=== PATIENT | male | born 1965 | race Caucasian/White ===

== ENCOUNTER 2016-09-17 22:58 | Inpatient (IN) | payer MEDICAID ==
[~2016-09-17] VITALS: Ht 182.9 cm; Wt 101.7 kg
[~2016-09-17 22:58] MED LIST: ATOR80TA PO; BUSP5TAB51 PO; CARV6.2551 PO; DIGO0.2570 PO; ENAL5TAB92 PO; ESCI10TA PO; ESOM40CA39 PO; FURO40TA4 PO; GEMF600T3 PO; LEVO50TA7 PO; POTA10TA34 PO; SPIR25TA88 PO; WARF1TAB PO
[2016-09-17 23:32] LABS: Basophils # (auto) 0.1 uL; Basophils % (auto) 0.6 % (0.0-2.0); Eosinophils # (auto) 0.4 uL; Eosinophils % (auto) 3.7 % (0.0-7.0); Hematocrit 37.2 % (41.0-53.0); Hemoglobin 11.9 g/dL (13.5-17.5); Lymphocytes # (auto) 1.3 uL; Lymphocytes % (auto) 12.5 % (10.0-50.0); Mean Corpuscular Hemoglobin 28.8 pg (28.0-32.0); Mean Corpuscular Hgb Conc. 31.9 g/dL (32.0-36.0); Mean Corpuscular Volume 90.1 fL (80.0-100.0); Mean Platelet Volume 8.7 fL (7.4-10.4); Monocytes # (auto) 0.6 uL; Monocytes % (auto) 5.2 % (0.0-12.0); Neutrophils # (auto) 8.2 uL; Platelet Count (auto) 346 10^3/uL (140-450); Red Cell Distribution Width 13.8 % (11.6-16.0); White Blood Cell 10.6 10^3/uL (4.4-10.8)
[2016-09-17 23:42] LABS: Albumin 2.8 g/dL (3.4-5.0); BUN/Creatinine Ratio 21.5; Calcium 7.9 mg/dL (8.5-10.1); Magnesium 2.2 mg/dL (1.6-2.6)
[2016-09-17 23:45] LABS: Bilirubin, Total 0.6 mg/dL (0.2-1.0); Total Protein 7.3 g/dL (6.4-8.2)
[2016-09-18 00:40] LABS: B-Type Natriuretic Peptide 677.41 pg/mL (0-100)
[2016-09-18] MEDS ORDERED: FUROSEMIDE 20 MG/2 ML VIAL IV ONE ×2 (04:45)
[2016-09-18] MEDS ORDERED: HYDROcodone-ACET 5/325MG TAB PO PRN (06:45)
[2016-09-18] MEDS ORDERED: NITROGLYCERIN 0.4 MG SL TAB SL PRN (06:45)
[2016-09-18] MEDS ORDERED: ONDANSETRON HCL 4 MG/2 ML VIAL IV PRN (06:45)
[2016-09-18] MEDS ORDERED: ALBUTEROL SULF 2.5 MG/0.5ML(0.5%) NEB SOLN NEB PRN (06:45)
[2016-09-18] MEDS ORDERED: MORPHINE SULF INJ 2 MG/ML SYRINGE 1ML IV PRN (06:45)
[2016-09-18] MEDS ORDERED: ACETAMINOPHEN 325 MG TAB PO PRN (06:45)
[2016-09-18] MEDS ORDERED: TEMAZEPAM 15 MG CAP PO PRN (06:45)
[2016-09-18 07:20] LABS: INR 1.13 (0.9-1.15); Partial Thromboplastin Time 29.7 sec (22.64-33.71); Prothrombin Time 11.6 sec (9.37-12.3)
[2016-09-18 09:00] VITALS: BP 133/86
[2016-09-18] MEDS: LEVOTHYROXINE SODIUM 50 MCG TAB PO SCH (09:00)
[2016-09-18 09:10] VITALS: BP 133/86
[2016-09-18] MEDS: FAMOTIDINE 20 MG TAB PO SCH ×2 (10:00→21:41)
[2016-09-18 10:27] VITALS: BP 138/82
[2016-09-18] MEDS: DIGOXIN 0.25 MG TAB PO SCH (10:53)
[2016-09-18] MEDS: ENALAPRIL MALEATE 2.5 MG TAB PO SCH ×2 (10:54→21:43)
[2016-09-18] MEDS: SPIRONOLACTONE 25 MG TAB PO SCH (10:54)
[2016-09-18] MEDS: busPIRone HCL 10 MG TAB PO SCH ×2 (10:54→21:43)
[2016-09-18] MEDS: FUROSEMIDE 40 MG TAB PO SCH (10:54)
[2016-09-18] MEDS: CARVEDILOL 3.125 MG TAB PO SCH ×2 (10:55→21:42)
[2016-09-18] MEDS: POTASSIUM CHL 10 Meq TABLET PO SCH (10:55)
[2016-09-18 13:00] VITALS: BP 125/91
[2016-09-18 17:11] VITALS: BP 112/74
[2016-09-18] MEDS: APIXABAN 5 MG TAB PO SCH (21:41)
[2016-09-18 22:00] VITALS: BP 113/73
[2016-09-18] MEDS ORDERED: PATIENTS OWN MEDICATION PO SCH ×2 (22:00)
[2016-09-18] MEDS ORDERED: ATORVASTATIN 20 MG TAB PO SCH (22:00)
[2016-09-19 05:00] VITALS: BP 104/57
[2016-09-19 06:37] LABS: Basophils # (auto) 0 uL; Basophils % (auto) 0.2 % (0.0-2.0); Eosinophils # (auto) 0.4 uL; Eosinophils % (auto) 5.6 % (0.0-7.0); Hemoglobin 12.7 g/dL (13.5-17.5); Lymphocytes # (auto) 1.5 uL; Lymphocytes % (auto) 18.8 % (10.0-50.0); Mean Corpuscular Hemoglobin 29.8 pg (28.0-32.0); Mean Corpuscular Hgb Conc. 32.5 g/dL (32.0-36.0); Mean Corpuscular Volume 91.7 fL (80.0-100.0); Mean Platelet Volume 9.1 fL (7.4-10.4); Monocytes # (auto) 0.7 uL; Neutrophils # (auto) 5.3 uL; Neutrophils % (auto) 66.4 % (37.0-80.0); Platelet Count (auto) 373 10^3/uL (140-450); Red Cell Distribution Width 14.1 % (11.6-16.0); White Blood Cell 7.9 10^3/uL (4.4-10.8)
[2016-09-19 06:41] LABS: Albumin 2.9 g/dL (3.4-5.0); BUN/Creatinine Ratio 22.7; Bilirubin, Total 0.6 mg/dL (0.2-1.0); Calcium 9.1 mg/dL (8.5-10.1); Potassium 3.9 mmol/L (3.5-5.1); Total Protein 7.7 g/dL (6.4-8.2)
[2016-09-19 07:43] LABS: B-Type Natriuretic Peptide 461.8 pg/mL (0-100)
[2016-09-19] MEDS: LEVOTHYROXINE SODIUM 50 MCG TAB PO SCH (08:10)
[2016-09-19 09:00] VITALS: BP 93/63
[2016-09-19] MEDS: FAMOTIDINE 20 MG TAB PO SCH (09:36)
[2016-09-19] MEDS: APIXABAN 5 MG TAB PO SCH (09:36)
[2016-09-19] MEDS: POTASSIUM CHL 10 Meq TABLET PO SCH (09:37)
[2016-09-19] MEDS: busPIRone HCL 10 MG TAB PO SCH (09:37)
[2016-09-19] MEDS: DIGOXIN 0.25 MG TAB PO SCH (09:37)
[2016-09-19] MEDS: CARVEDILOL 3.125 MG TAB PO SCH (09:38)
[2016-09-19] MEDS: SPIRONOLACTONE 25 MG TAB PO SCH (09:38)
[2016-09-19] MEDS: ENALAPRIL MALEATE 2.5 MG TAB PO SCH (09:38)
[2016-09-19] MEDS: FUROSEMIDE 40 MG TAB PO SCH (09:38)
[2016-09-19 12:57] VITALS: BP 93/63
[2016-09-19 13:29] VITALS: BP 101/60
== END 2016-09-19 14:20 | disposition home or self-care (01) | DRG 194 ==
LOC: EDBD 22:58 → ER 23:02 → TELE 23:03 → TELE-E-ADS 09-18 08:11 → TELE-EAST 09-18 10:24
PROVIDERS: ADMIT Internal Medicine; ATTEND Internal Medicine
DX: I11.0 Hypertensive heart disease with heart failure (principal); E43 Unspecified severe protein-calorie malnutrition; F03.90 Unspecified dementia, unspecified severity, without behavioral disturbance, psychotic disturbance, mood disturbance, and anxiety; I50.43 Acute on chronic combined systolic (congestive) and diastolic (congestive) heart failure; I42.9 Cardiomyopathy, unspecified; J44.9 Chronic obstructive pulmonary disease, unspecified; F17.210 Nicotine dependence, cigarettes, uncomplicated; F15.10 Other stimulant abuse, uncomplicated; I25.10 Atherosclerotic heart disease of native coronary artery without angina pectoris; Z86.73 Personal history of transient ischemic attack (TIA), and cerebral infarction without residual deficits; Z91.19 Patient's noncompliance with other medical treatment and regimen; Z68.30 Body mass index [BMI] 30.0-30.9, adult; I25.2 Old myocardial infarction; Z88.0 Allergy status to penicillin; Z79.899 Other long term (current) drug therapy
CPT/HCPCS: 36415; 71010; 80053; 80162; 83735; 83880; 84484; 85025; 85049; 85610; 85730; 93005; 93306; 96374

== ENCOUNTER 2016-12-18 16:51 | Inpatient (IN) | payer MEDICAID ==
[~2016-12-18] VITALS: Ht 177.8 cm; Wt 98.0 kg
[2016-12-18] MEDS ORDERED: ACETAMINOPHEN 325 MG TAB PO ONE (17:30)
[2016-12-18 17:36] LABS: Basophils # (auto) 0 uL; Eosinophils # (auto) 0 uL; Eosinophils % (auto) 0.3 % (0.0-7.0); Hematocrit 41.5 % (41.0-53.0); Hemoglobin 13.6 g/dL (13.5-17.5); Lymphocytes # (auto) 1.3 uL; Lymphocytes % (auto) 6.8 % (10.0-50.0); Mean Corpuscular Hemoglobin 29.7 pg (28.0-32.0); Mean Corpuscular Hgb Conc. 32.7 g/dL (32.0-36.0); Mean Corpuscular Volume 90.8 fL (80.0-100.0); Mean Platelet Volume 8.3 fL (7.4-10.4); Monocytes # (auto) 0.8 uL; Monocytes % (auto) 4.1 % (0.0-12.0); Neutrophils # (auto) 17.5 uL; Neutrophils % (auto) 88.8 % (37.0-80.0); Platelet Count (auto) 434 10^3/uL (140-450); Red Cell Distribution Width 15.3 % (11.6-16.0); SUSPECT VIEW TRANSMISSION; White Blood Cell 19.7 10^3/uL (4.4-10.8)
[2016-12-18 17:59] LABS: Albumin 3.3 g/dL (3.4-5.0); BUN/Creatinine Ratio 21.7; Bilirubin, Total 0.9 mg/dL (0.2-1.0); Calcium 8.7 mg/dL (8.5-10.1); Potassium 3.7 mmol/L (3.5-5.1); Total Protein 7.8 g/dL (6.4-8.2)
[2016-12-18 18:47] LABS: B-Type Natriuretic Peptide 938.31 pg/mL (0-100)
[2016-12-18] MEDS ORDERED: cefTRIAXone 1GM/50ML D5W 50 ML IV ONE (19:30)
[2016-12-18] MEDS ORDERED: FUROSEMIDE 40 MG/4 ML VIAL IV ONE (19:45)
[2016-12-18] MEDS ORDERED: ASPirin-EC 81 mg tab PO ONE (19:45)
[2016-12-18 20:25] LABS: Urine Bilirubin Negative (Negative); Urine Blood Negative /uL (Negative); Urine Color Yellow (Yellow); Urine Glucose Normal (Normal); Urine Ketone Negative (Negative); Urine Nitrite Negative (Negative); Urine RBC 1 /hpf (0 - 3); Urine Sperm PRESENT /hpf (None Seen); Urine Squamous Epithelial Cell FEW /hpf (<5)
[2016-12-18] MEDS ORDERED: HYDROcodone-ACET 5/325MG TAB PO PRN (21:30)
[2016-12-18] MEDS ORDERED: ACETAMINOPHEN 325 MG TAB PO PRN (21:30)
[2016-12-18] MEDS ORDERED: ONDANSETRON HCL 4 MG/2 ML VIAL IV PRN (21:30)
[2016-12-18] MEDS ORDERED: TEMAZEPAM 15 MG CAP PO PRN (21:30)
[2016-12-18] MEDS ORDERED: MORPHINE SULF INJ 2 MG/ML SYRINGE 1ML IV PRN (21:30)
[2016-12-18] MEDS ORDERED: NITROGLYCERIN 0.4 MG SL TAB SL PRN (21:30)
[2016-12-18 22:50] VITALS: BP 112/71
[2016-12-18] MEDS: CARVEDILOL 3.125 MG TAB PO SCH (23:11)
[2016-12-18] MEDS: busPIRone HCL 10 MG TAB PO SCH (23:11)
[2016-12-18] MEDS: FAMOTIDINE 20 MG TAB PO SCH (23:12)
[2016-12-18] MEDS: ATORVASTATIN 20 MG TAB PO SCH (23:12)
[2016-12-18] MEDS: ENALAPRIL MALEATE 2.5 MG TAB PO SCH (23:13)
[2016-12-18 23:25] LABS: INR 1.24 (0.9-1.15); Partial Thromboplastin Time 28.5 sec (22.64-33.71); Prothrombin Time 13.4 sec (9.37-12.3)
[2016-12-19] VITALS (7 sets, daily range): BP systolic 94–108; BP diastolic 53–70
[2016-12-19] MEDS: LEVOTHYROXINE SODIUM 50 MCG TAB PO SCH (06:27)
[2016-12-19 07:13] LABS: Basophils # (auto) 0 uL; Eosinophils # (auto) 0.1 uL; Eosinophils % (auto) 0.3 % (0.0-7.0); Hematocrit 39.3 % (41.0-53.0); Hemoglobin 12.9 g/dL (13.5-17.5); Lymphocytes # (auto) 1.7 uL; Lymphocytes % (auto) 8.6 % (10.0-50.0); Mean Corpuscular Hemoglobin 29.8 pg (28.0-32.0); Mean Corpuscular Hgb Conc. 32.7 g/dL (32.0-36.0); Mean Corpuscular Volume 91.3 fL (80.0-100.0); Mean Platelet Volume 8.7 fL (7.4-10.4); Monocytes # (auto) 1.1 uL; Monocytes % (auto) 5.7 % (0.0-12.0); Neutrophils # (auto) 16.7 uL; Neutrophils % (auto) 85.4 % (37.0-80.0); Platelet Count (auto) 358 10^3/uL (140-450); Red Cell Distribution Width 15.4 % (11.6-16.0); White Blood Cell 19.6 10^3/uL (4.4-10.8)
[2016-12-19] MEDS ORDERED: LEVOFLOXACIN 750MG 150 ML IV SCH (10:00)
[2016-12-19] MEDS: SPIRONOLACTONE 25 MG TAB PO SCH (10:04)
[2016-12-19] MEDS: busPIRone HCL 10 MG TAB PO SCH ×2 (10:04→21:29)
[2016-12-19] MEDS: CARVEDILOL 3.125 MG TAB PO SCH ×2 (10:05→21:29)
[2016-12-19] MEDS: FUROSEMIDE 40 MG TAB PO SCH (10:05)
[2016-12-19] MEDS: POTASSIUM CHL 10 Meq TABLET PO SCH (10:05)
[2016-12-19] MEDS: FAMOTIDINE 20 MG TAB PO SCH ×2 (10:05→21:29)
[2016-12-19] MEDS: ENALAPRIL MALEATE 2.5 MG TAB PO SCH ×2 (10:05→21:26)
[2016-12-19 10:55] LABS: INR 1.24 (0.9-1.15); Prothrombin Time 13.4 sec (9.37-12.3)
[2016-12-19 14:32] LABS: Albumin 2.9 g/dL (3.4-5.0); BUN/Creatinine Ratio 19.5; Bilirubin, Total 1.1 mg/dL (0.2-1.0); Calcium 8.7 mg/dL (8.5-10.1); Potassium 3.4 mmol/L (3.5-5.1); Total Protein 7.3 g/dL (6.4-8.2)
[2016-12-19] MEDS ORDERED: WARFARIN SODIUM 2 MG TAB PO ONE (17:00)
[2016-12-19] MEDS ORDERED: VANCOMYCIN PER PHARMACY 0 MG IV SCH (18:15)
[2016-12-19] MEDS: VANCOMYCIN 1GM/250ML D5W 250 ML IV SCH (21:16)
[2016-12-19] MEDS: ATORVASTATIN 20 MG TAB PO SCH (21:28)
[2016-12-20] MEDS: ALBUTEROL SULF 2.5 MG/0.5ML(0.5%) NEB SOLN NEB SCH ×4 (00:23→19:26)
[2016-12-20 05:00] VITALS: BP 104/67
[2016-12-20 06:09] LABS: Calcium 9.2 mg/dL (8.5-10.1); Potassium 3.6 mmol/L (3.5-5.1)
[2016-12-20 06:14] LABS: INR 1.14 (0.9-1.15); Partial Thromboplastin Time 29.7 sec (22.64-33.71); Prothrombin Time 12.3 sec (9.37-12.3)
[2016-12-20 06:16] LABS: Albumin 2.7 g/dL (3.4-5.0); BUN/Creatinine Ratio 24.2
[2016-12-20 06:18] LABS: Bilirubin, Total 0.6 mg/dL (0.2-1.0); Total Protein 7.1 g/dL (6.4-8.2)
[2016-12-20] MEDS: VANCOMYCIN 1GM/250ML D5W 250 ML IV SCH ×3 (06:24→20:46)
[2016-12-20] MEDS: LEVOTHYROXINE SODIUM 50 MCG TAB PO SCH (06:24)
[2016-12-20 06:33] LABS: Basophils # (auto) 0 uL; Basophils % (auto) 0.4 % (0.0-2.0); Eosinophils # (auto) 0.3 uL; Eosinophils % (auto) 3.6 % (0.0-7.0); Hematocrit 38.1 % (41.0-53.0); Hemoglobin 12.4 g/dL (13.5-17.5); Lymphocytes # (auto) 1.6 uL; Lymphocytes % (auto) 18.9 % (10.0-50.0); Mean Corpuscular Hemoglobin 29.9 pg (28.0-32.0); Mean Corpuscular Hgb Conc. 32.6 g/dL (32.0-36.0); Mean Corpuscular Volume 91.6 fL (80.0-100.0); Mean Platelet Volume 8.4 fL (7.4-10.4); Monocytes # (auto) 0.8 uL; Neutrophils # (auto) 5.9 uL; Neutrophils % (auto) 68.1 % (37.0-80.0); Platelet Count (auto) 366 10^3/uL (140-450); Red Cell Distribution Width 15.7 % (11.6-16.0); White Blood Cell 8.6 10^3/uL (4.4-10.8)
[2016-12-20 08:36] VITALS: BP 110/74
[2016-12-20] MEDS: FUROSEMIDE 40 MG TAB PO SCH (10:03)
[2016-12-20] MEDS: FAMOTIDINE 20 MG TAB PO SCH ×2 (10:03→22:11)
[2016-12-20] MEDS: SPIRONOLACTONE 25 MG TAB PO SCH (10:03)
[2016-12-20] MEDS: POTASSIUM CHL 10 Meq TABLET PO SCH (10:04)
[2016-12-20] MEDS: busPIRone HCL 10 MG TAB PO SCH ×2 (10:04→22:09)
[2016-12-20] MEDS: CARVEDILOL 3.125 MG TAB PO SCH ×2 (10:05→22:10)
[2016-12-20] MEDS: ENALAPRIL MALEATE 2.5 MG TAB PO SCH ×2 (10:05→22:11)
[2016-12-20 12:30] VITALS: BP 107/77
[2016-12-20 16:40] VITALS: BP 109/75
[2016-12-20] MEDS ORDERED: WARFARIN SODIUM 2 MG TAB PO ONE (17:00)
[2016-12-20 22:00] VITALS: BP 114/76
[2016-12-20] MEDS: ATORVASTATIN 20 MG TAB PO SCH (22:10)
[2016-12-21] MEDS: ALBUTEROL SULF 2.5 MG/0.5ML(0.5%) NEB SOLN NEB SCH ×3 (00:56→11:26)
[2016-12-21] MEDS: VANCOMYCIN 1GM/250ML D5W 250 ML IV SCH (04:48)
[2016-12-21 05:00] VITALS: BP 107/62
[2016-12-21 05:40] LABS: INR 1.06 (0.9-1.15); Partial Thromboplastin Time 28.3 sec (22.64-33.71); Prothrombin Time 11.5 sec (9.37-12.3)
[2016-12-21] MEDS: LEVOTHYROXINE SODIUM 50 MCG TAB PO SCH (06:57)
[2016-12-21 08:24] VITALS: BP 129/89
[2016-12-21] MEDS: CARVEDILOL 3.125 MG TAB PO SCH (10:23)
[2016-12-21] MEDS: ENALAPRIL MALEATE 2.5 MG TAB PO SCH (10:23)
[2016-12-21] MEDS: POTASSIUM CHL 10 Meq TABLET PO SCH (10:24)
[2016-12-21] MEDS: FAMOTIDINE 20 MG TAB PO SCH (10:24)
[2016-12-21] MEDS: busPIRone HCL 10 MG TAB PO SCH (10:24)
[2016-12-21] MEDS: FUROSEMIDE 40 MG TAB PO SCH (10:24)
[2016-12-21] MEDS: SPIRONOLACTONE 25 MG TAB PO SCH (10:24)
[2016-12-21 11:29] VITALS: BP 129/89
[2016-12-21] MEDS ORDERED: WARFARIN SODIUM 5 MG TAB PO ONE (17:00)
[2016-12-21] MEDS ORDERED: VANCOMYCIN 1GM/250ML D5W 250 ML IV SCH (17:00)
== END 2016-12-21 11:50 | disposition home or self-care (01) | DRG 194 ==
LOC: EDBD 16:51 → ER 16:55 → TELE 16:56 → TELE-EAST 22:35
PROVIDERS: ADMIT Internal Medicine; ATTEND Internal Medicine
DX: I11.0 Hypertensive heart disease with heart failure (principal); J18.9 Pneumonia, unspecified organism; E44.0 Moderate protein-calorie malnutrition; I42.9 Cardiomyopathy, unspecified; M32.9 Systemic lupus erythematosus, unspecified; I50.43 Acute on chronic combined systolic (congestive) and diastolic (congestive) heart failure; J44.0 Chronic obstructive pulmonary disease with (acute) lower respiratory infection; J44.1 Chronic obstructive pulmonary disease with (acute) exacerbation; F17.210 Nicotine dependence, cigarettes, uncomplicated; I25.10 Atherosclerotic heart disease of native coronary artery without angina pectoris; F15.90 Other stimulant use, unspecified, uncomplicated; Z86.73 Personal history of transient ischemic attack (TIA), and cerebral infarction without residual deficits; Z91.19 Patient's noncompliance with other medical treatment and regimen; Z95.810 Presence of automatic (implantable) cardiac defibrillator; Z88.0 Allergy status to penicillin; Z68.31 Body mass index [BMI] 31.0-31.9, adult; Z79.899 Other long term (current) drug therapy; I25.2 Old myocardial infarction
CPT/HCPCS: 36415; 71010; 80053; 80202; 80307; 80320; 81001; 82962; 83605; 83880; 84484; 85025; 85610; 85730; 87040; 87077; 87186; 93005; 94640; 94761; J0696; J1956

== ENCOUNTER 2017-01-03 01:52 | Inpatient (IN) | payer MEDICAID ==
[~2017-01-03] VITALS: Ht 177.8 cm; Wt 96.3 kg
[2017-01-03] MEDS ORDERED: ENALAPRILAT 1.25 MG/ML-1ML VIAL IV ONE (02:45)
[2017-01-03 03:12] LABS: Basophils # (auto) 0 uL; Basophils % (auto) 0.4 % (0.0-2.0); Eosinophils # (auto) 0.1 uL; Eosinophils % (auto) 1.4 % (0.0-7.0); Hemoglobin 12.7 g/dL (13.5-17.5); Lymphocytes # (auto) 1.7 uL; Lymphocytes % (auto) 19.6 % (10.0-50.0); Mean Corpuscular Hemoglobin 29.5 pg (28.0-32.0); Mean Corpuscular Hgb Conc. 32.6 g/dL (32.0-36.0); Mean Corpuscular Volume 90.6 fL (80.0-100.0); Mean Platelet Volume 8.6 fL (7.4-10.4); Monocytes # (auto) 0.6 uL; Monocytes % (auto) 6.3 % (0.0-12.0); Neutrophils # (auto) 6.4 uL; Neutrophils % (auto) 72.3 % (37.0-80.0); Platelet Count (auto) 397 10^3/uL (140-450); Red Cell Distribution Width 15.9 % (11.6-16.0); White Blood Cell 8.9 10^3/uL (4.4-10.8)
[2017-01-03 03:27] LABS: INR 1.12 (0.9-1.15); Partial Thromboplastin Time 27.1 sec (22.64-33.71); Prothrombin Time 12.1 sec (9.37-12.3)
[2017-01-03 03:28] LABS: Albumin 3.4 g/dL (3.4-5.0); BUN/Creatinine Ratio 16.5; Calcium 8.2 mg/dL (8.5-10.1); Potassium 3.7 mmol/L (3.5-5.1)
[2017-01-03 03:33] LABS: Bilirubin, Total 0.8 mg/dL (0.2-1.0); Total Protein 6.8 g/dL (6.4-8.2)
[2017-01-03 03:44] LABS: B-Type Natriuretic Peptide 2508.76 pg/mL (0-100)
[2017-01-03 03:55] LABS: Urine RBC None Seen /hpf (0 - 3)
[2017-01-03 04:07] LABS: Urine Bilirubin Negative (Negative); Urine Blood Negative /uL (Negative); Urine Color Yellow (Yellow); Urine Glucose Normal (Normal); Urine Hyaline Cast FEW /lpf (0 - 2); Urine Ketone Negative (Negative); Urine Nitrite Negative (Negative); Urine Squamous Epithelial Cell FEW /hpf (<5); Urine Urobilinogen Normal (Negative); Urine pH 5.5 (5.0-8.0)
[2017-01-03] MEDS ORDERED: ONDANSETRON HCL 4 MG/2 ML VIAL IV PRN (07:00)
[2017-01-03] MEDS ORDERED: MORPHINE SULF INJ 2 MG/ML SYRINGE 1ML IV PRN ×2 (07:00)
[2017-01-03] MEDS ORDERED: ACETAMINOPHEN 325 MG TAB PO PRN (07:00)
[2017-01-03] MEDS ORDERED: NITROGLYCERIN 0.4 MG SL TAB SL PRN (07:00)
[2017-01-03] MEDS ORDERED: TEMAZEPAM 15 MG CAP PO PRN (07:00)
[2017-01-03] MEDS: FUROSEMIDE 40 MG/4 ML VIAL IV SCH ×2 (08:18→18:54)
[2017-01-03] MEDS ORDERED: ENALAPRIL MALEATE 2.5 MG TAB PO ONE (10:00)
[2017-01-03] MEDS ORDERED: ENOXAPARIN SOD 40 MG/0.4 ML SYRINGE SC SCH (10:00)
[2017-01-03] MEDS ORDERED: ZINC SULFATE 220 MG CAP PO SCH (10:00)
[2017-01-03] MEDS ORDERED: FUROSEMIDE 40 MG/4 ML VIAL IV ONE (10:00)
[2017-01-03] MEDS ORDERED: ASCORBIC ACID 500 MG TAB PO SCH (10:00)
[2017-01-03] MEDS ORDERED: ENOXAPARIN SOD 30 MG/0.3 ML SYRINGE SC SCH (10:00)
[2017-01-03] MEDS: MULTIPLE VITAMIN TAB PO SCH (10:26)
[2017-01-03] MEDS: ENALAPRIL MALEATE 2.5 MG TAB PO SCH (10:26)
[2017-01-03] MEDS: FAMOTIDINE 20 MG TAB PO SCH ×2 (10:26→21:47)
[2017-01-03] MEDS: SODIUM CHLOR 0.9% PF (SALINE LOCK) 10ML VIAL IV SCH ×2 (14:00→21:50)
[2017-01-03] MEDS ORDERED: APIX5TAB OR (15:25)
[2017-01-03] MEDS ORDERED: OMEP20CA5 OR (15:25)
[2017-01-03 17:00] VITALS: BP 132/80
[2017-01-03] MEDS: SPIRONOLACTONE 25 MG TAB PO SCH (20:11)
[2017-01-03] MEDS: ASPirin 81 mg TAB PO SCH (20:12)
[2017-01-03] MEDS: DIGOXIN 0.25 MG TAB PO SCH (20:12)
[2017-01-03] MEDS: POTASSIUM CHL 20 Meq TABLET PO SCH (20:12)
[2017-01-03] MEDS: CARVEDILOL 3.125 MG TAB PO SCH (21:47)
[2017-01-03 22:00] VITALS: BP 115/71
[2017-01-04 05:07] VITALS: BP 118/78
[2017-01-04 05:44] LABS: BUN/Creatinine Ratio 20.4; Bilirubin, Total 0.9 mg/dL (0.2-1.0); Calcium 8.5 mg/dL (8.5-10.1); Potassium 3.3 mmol/L (3.5-5.1); Total Protein 6.4 g/dL (6.4-8.2)
[2017-01-04] MEDS: SODIUM CHLOR 0.9% PF (SALINE LOCK) 10ML VIAL IV SCH ×3 (06:18→21:50)
[2017-01-04] MEDS: FUROSEMIDE 40 MG/4 ML VIAL IV SCH ×2 (06:19→18:27)
[2017-01-04] MEDS ORDERED: LEVOTHYROXINE SODIUM 50 MCG TAB PO SCH (07:00)
[2017-01-04 08:56] VITALS: BP 108/70
[2017-01-04] MEDS: CARVEDILOL 3.125 MG TAB PO SCH ×2 (10:00→21:50)
[2017-01-04] MEDS: SPIRONOLACTONE 25 MG TAB PO SCH (10:04)
[2017-01-04] MEDS: ASPirin 81 mg TAB PO SCH (10:04)
[2017-01-04] MEDS: POTASSIUM CHL 20 Meq TABLET PO SCH (10:06)
[2017-01-04] MEDS: DIGOXIN 0.25 MG TAB PO SCH (10:07)
[2017-01-04] MEDS: MULTIPLE VITAMIN TAB PO SCH (10:08)
[2017-01-04] MEDS: ENALAPRIL MALEATE 2.5 MG TAB PO SCH (10:08)
[2017-01-04] MEDS: FAMOTIDINE 20 MG TAB PO SCH ×2 (10:08→22:00)
[2017-01-04] MEDS ORDERED: POTASSIUM CHLORIDE 40 MEQ, LIDOCAINE 1% (LOCAL ANESTH.) 4 ML in SODIUM CHL 0.9% 250 ML IV ONE (10:30)
[2017-01-04 12:50] VITALS: BP 120/80
[2017-01-04 17:00] VITALS: BP 116/74
[2017-01-04 21:46] VITALS: BP 98/60
[2017-01-05 04:34] VITALS: BP 114/77
[2017-01-05] MEDS: SODIUM CHLOR 0.9% PF (SALINE LOCK) 10ML VIAL IV SCH ×2 (06:28→14:43)
[2017-01-05] MEDS: FUROSEMIDE 40 MG/4 ML VIAL IV SCH (06:28)
[2017-01-05] MEDS ORDERED: LEVOTHYROXINE SODIUM 100 MCG TAB PO SCH (07:00)
[2017-01-05 07:11] LABS: Albumin 3.3 g/dL (3.4-5.0); BUN/Creatinine Ratio 19.1; Bilirubin, Total 0.8 mg/dL (0.2-1.0); Potassium 3.7 mmol/L (3.5-5.1); Total Protein 6.9 g/dL (6.4-8.2)
[2017-01-05 08:00] VITALS: BP 123/72
[2017-01-05 08:32] LABS: B-Type Natriuretic Peptide 609.8 pg/mL (0-100); Temperature: 23.1 C (20.0-25.0)
[2017-01-05 09:00] VITALS: BP 123/72
[2017-01-05] MEDS: ENALAPRIL MALEATE 2.5 MG TAB PO SCH (09:39)
[2017-01-05] MEDS: SPIRONOLACTONE 25 MG TAB PO SCH (09:39)
[2017-01-05] MEDS: POTASSIUM CHL 20 Meq TABLET PO SCH (09:39)
[2017-01-05] MEDS: CARVEDILOL 3.125 MG TAB PO SCH (09:39)
[2017-01-05] MEDS: FAMOTIDINE 20 MG TAB PO SCH (09:39)
[2017-01-05] MEDS: ASPirin 81 mg TAB PO SCH (09:39)
[2017-01-05] MEDS: DIGOXIN 0.25 MG TAB PO SCH (09:40)
[2017-01-05] MEDS: MULTIPLE VITAMIN TAB PO SCH (09:40)
[2017-01-05 12:58] VITALS: BP 123/72
[2017-01-05 13:00] VITALS: BP 104/70
== END 2017-01-05 15:00 | disposition home or self-care (01) | DRG 194 ==
LOC: ER 01:52 → TELE 01:53 → TELE-E-ADS 13:52 → TELE-WESTW 16:32
PROVIDERS: ADMIT Emergency Medicine; ATTEND Internal Medicine
DX: I11.0 Hypertensive heart disease with heart failure (principal); I42.9 Cardiomyopathy, unspecified; E44.1 Mild protein-calorie malnutrition; I50.43 Acute on chronic combined systolic (congestive) and diastolic (congestive) heart failure; J44.9 Chronic obstructive pulmonary disease, unspecified; F15.10 Other stimulant abuse, uncomplicated; I25.10 Atherosclerotic heart disease of native coronary artery without angina pectoris; F17.210 Nicotine dependence, cigarettes, uncomplicated; E03.9 Hypothyroidism, unspecified; E78.5 Hyperlipidemia, unspecified; Z91.19 Patient's noncompliance with other medical treatment and regimen; Z88.0 Allergy status to penicillin; Z86.73 Personal history of transient ischemic attack (TIA), and cerebral infarction without residual deficits; I25.2 Old myocardial infarction; Z68.30 Body mass index [BMI] 30.0-30.9, adult
CPT/HCPCS: 36415; 36600; 71010; 80053; 80074; 80307; 81001; 82805; 83735; 83880; 84443; 84484; 85025; 85610; 85730; 87081; 93005; 94761; 96372; 96374; J2001

== ENCOUNTER 2017-12-03 20:05 | Emergency (ER) | payer MEDICAID ==
[~2017-12-03] VITALS: Ht 175.3 cm; Wt 93.0 kg
[~2017-12-03 20:05] MED LIST changes: +APIX5TAB OR; -ATOR80TA PO; -ESOM40CA39 PO; +OMEP20CA74 OR; -WARF1TAB PO
[2017-12-03] MEDS ORDERED: ONDANSETRON HCL 4 MG/2 ML VIAL ONE (21:06)
[2017-12-03] MEDS ORDERED: SODIUM CHLORIDE 0.9% 1,000 ML IVB ONE (23:41)
[2017-12-03] MEDS ORDERED: PANTOPRAZOLE 40 MG/10 ML VIAL IV STA (23:41)
[2017-12-03] MEDS ORDERED: ONDANSETRON HCL 4 MG/2 ML VIAL IV ONE (23:45)
[2017-12-04 00:12] LABS: Basophils # (auto) 0.1 uL; Basophils % (auto) 0.6 % (0.0-2.0); Eosinophils # (auto) 0.1 uL; Eosinophils % (auto) 0.5 % (0.0-7.0); Hematocrit 41.1 % (41.0-53.0); Hemoglobin 13.5 g/dL (13.5-17.5); Lymphocytes # (auto) 1.4 uL; Lymphocytes % (auto) 10.3 % (10.0-50.0); Mean Corpuscular Hemoglobin 30.6 pg (28.0-32.0); Mean Corpuscular Hgb Conc. 32.9 g/dL (32.0-36.0); Mean Corpuscular Volume 92.8 fL (80.0-100.0); Monocytes % (auto) 7.4 % (0.0-12.0); Neutrophils # (auto) 11.1 uL; Neutrophils % (auto) 81.2 % (37.0-80.0); Platelet Count (auto) 288 10^3/uL (140-450); Red Blood Cells 4.43 10^6/uL (4.5-5.90); Red Cell Distribution Width 14.7 % (11.8-14.3); White Blood Cell 13.7 10^3/uL (4.4-10.8)
[2017-12-04 00:26] LABS: Alanine Aminotransferase 32 U/L (16-61); Albumin 3.3 g/dL (3.4-5.0); Amylase 29 U/L (25-115); Anion Gap 7 (5-15); Aspartate Aminotransferase 24 U/L (15-37); BUN/Creatinine Ratio 19.7; Blood Alcohol < 3.0 mg/dL (0-5); Blood Urea Nitrogen 15 mg/dL (7-18); Calcium 8.4 mg/dL (8.5-10.1); Carbon Dioxide 23 mmol/L (21-32); Chloride 106 mmol/L (98-107); GFR African American 139 mL/min; GFR Non-African American 115 mL/min; Glucose 104 mg/dL (74-106); Lipase 71 U/L (73-393); Potassium 3.9 mmol/L (3.5-5.1); Sodium 136 mmol/L (136-145)
[2017-12-04 00:27] LABS: INR 1.03 (0.9-1.15); Partial Thromboplastin Time 30.7 sec (22.64-33.71); Prothrombin Time 11.2 sec (9.37-12.3)
[2017-12-04 00:29] LABS: Alkaline Phosphatase 103 U/L (45-117); Bilirubin, Total 0.9 mg/dL (0.2-1.0)
[2017-12-04 02:54] VITALS: BP 129/85
== END 2017-12-04 04:24 | disposition home or self-care (01) ==
LOC: EDBD 20:05 → ER 20:09
DX: K29.70 Gastritis, unspecified, without bleeding (principal); I11.0 Hypertensive heart disease with heart failure; I50.9 Heart failure, unspecified; J44.9 Chronic obstructive pulmonary disease, unspecified; I25.10 Atherosclerotic heart disease of native coronary artery without angina pectoris; I25.2 Old myocardial infarction; F17.210 Nicotine dependence, cigarettes, uncomplicated; Z88.0 Allergy status to penicillin; Z86.73 Personal history of transient ischemic attack (TIA), and cerebral infarction without residual deficits; Z95.0 Presence of cardiac pacemaker
CPT/HCPCS: 36415; 80053; 80320; 82150; 83690; 85025; 85610; 85730; 93005; 96374; 96375; 99284; C9113; J2405

== ENCOUNTER 2018-11-10 17:46 | Emergency (ER) | payer MEDICAID ==
[~2018-11-10] VITALS: Ht 177.8 cm; Wt 95.3 kg
[~2018-11-10 17:46] MED LIST changes: +ENAL5TAB PO; -ENAL5TAB92 PO; -GEMF600T3 PO; +GEMF600T7 PO; -POTA10TA34 PO; +POTA1TAB61 PO
[2018-11-10 18:57] LABS: Urine Bacteria NONE SEEN /hpf (None Seen); Urine Blood Negative /uL (Negative); Urine Hyaline Cast FEW /lpf (0 - 2); Urine Specific Gravity 1.009 (1.001-1.035); Urine WBC 1 /hpf (0 - 3)
[2018-11-10 19:09] LABS: Alcohol, Urine < 3.0 mg/dL (0-5); Amphetamine Screen, Urine POSITIVE (NEGATIVE); Barbiturate Scree,Urine NEGATIVE (NEGATIVE); Benzodiazephine Screen, Urine NEGATIVE (NEGATIVE); Cannabinoid Screen, Urine NEGATIVE (NEGATIVE); Cocaine Screen, Urine NEGATIVE (NEGATIVE); Opiate Scree,Urine NEGATIVE (NEGATIVE); Phencyclidine Screen, Urine NEGATIVE (NEGATIVE)
[2018-11-10 19:47] LABS: Basophils # (auto) 0.1 uL; Basophils % (auto) 0.8 % (0.0-2.0); Eosinophils # (auto) 0.2 uL; Eosinophils % (auto) 2.1 % (0.0-7.0); Hemoglobin 14.5 g/dL (13.5-17.5); Lymphocytes # (auto) 1.2 uL; Lymphocytes % (auto) 16.2 % (10.0-50.0); Mean Corpuscular Hgb Conc. 33.8 g/dL (32.0-36.0); Mean Corpuscular Volume 94.6 fL (80.0-100.0); Monocytes # (auto) 0.7 uL; Monocytes % (auto) 8.8 % (0.0-12.0); Neutrophils # (auto) 5.4 uL; Neutrophils % (auto) 72.1 % (37.0-80.0); Nucleated Red Blood Cells % 0.1 %; Platelet Count (auto) 272 10^3/uL (140-450); Red Blood Cells 4.55 10^6/uL (4.5-5.90); Red Cell Distribution Width 14.9 % (11.8-14.3); White Blood Cell 7.5 10^3/uL (4.4-10.8)
[2018-11-10 20:17] LABS: Albumin 3.6 g/dL (3.4-5.0); BUN/Creatinine Ratio 16.3; Bilirubin, Total 0.8 mg/dL (0.2-1.0); Calcium 8.7 mg/dL (8.5-10.1); Magnesium 2.4 mg/dL (1.6-2.6); Potassium 3.8 mmol/L (3.5-5.1); Total Protein 7.6 g/dL (6.4-8.2)
[2018-11-10 21:08] VITALS: BP 110/73
[2018-11-10] MEDS ORDERED: SODIUM CHLORIDE 0.9% 500 ML IV ONE (21:15)
== END 2018-11-10 21:13 | disposition home or self-care (01) ==
LOC: EDBD 17:46 → ER 17:48
DX: R55 Syncope and collapse (principal); F15.10 Other stimulant abuse, uncomplicated; R42 Dizziness and giddiness; F17.210 Nicotine dependence, cigarettes, uncomplicated; J44.9 Chronic obstructive pulmonary disease, unspecified; I11.0 Hypertensive heart disease with heart failure; I50.9 Heart failure, unspecified; I25.2 Old myocardial infarction; Z86.73 Personal history of transient ischemic attack (TIA), and cerebral infarction without residual deficits; Z88.0 Allergy status to penicillin; Z79.899 Other long term (current) drug therapy
CPT/HCPCS: 36415; 70450; 71045; 80053; 80307; 81001; 83735; 84484; 85025; 93005; 99284; J7040

== ENCOUNTER 2019-06-11 02:48 | Inpatient (IN) | payer MEDICAID ==
[~2019-06-11] VITALS: Ht 177.8 cm; Wt 95.0 kg
[2019-06-11 03:40] LABS: Basophils # (auto) 0.1 uL; Basophils % (auto) 0.9 % (0.0-2.0); Eosinophils # (auto) 0.2 uL; Eosinophils % (auto) 2.1 % (0.0-7.0); Hematocrit 37.6 % (41.0-53.0); Hemoglobin 12.8 g/dL (13.5-17.5); Lymphocytes # (auto) 1.1 uL; Lymphocytes % (auto) 14.7 % (10.0-50.0); Mean Corpuscular Hemoglobin 31.8 pg (28.0-32.0); Mean Corpuscular Hgb Conc. 33.9 g/dL (32.0-36.0); Mean Corpuscular Volume 93.8 fL (80.0-100.0); Monocytes # (auto) 0.5 uL; Monocytes % (auto) 6.4 % (0.0-12.0); Neutrophils # (auto) 5.8 uL; Neutrophils % (auto) 75.9 % (37.0-80.0); Nucleated Red Blood Cells % 0.1 %; Platelet Count (auto) 254 10^3/uL (140-450); Red Blood Cells 4.01 10^6/uL (4.5-5.90); Red Cell Distribution Width 15.3 % (11.8-14.3); White Blood Cell 7.7 10^3/uL (4.4-10.8)
[2019-06-11 04:05] LABS: BUN/Creatinine Ratio 17.5; Calcium 7.5 mg/dL (8.5-10.1); Potassium 3.5 mmol/L (3.5-5.1)
[2019-06-11 04:11] LABS: Bilirubin, Total 0.6 mg/dL (0.2-1.0); Total Protein 6.2 g/dL (6.4-8.2)
[2019-06-11 07:11] LABS: Urine Bacteria NONE SEEN /hpf (None Seen); Urine Blood Negative /uL (Negative); Urine Specific Gravity 1.017 (1.001-1.035); Urine WBC 1 /hpf (0 - 3)
[2019-06-11] MEDS ORDERED: MORPHINE SULF INJ 2 MG/ML SYRINGE 1ML IV PRN (10:00)
[2019-06-11] MEDS ORDERED: NITROGLYCERIN 0.4 MG SL TAB SL PRN (10:00)
[2019-06-11] MEDS ORDERED: FUROSEMIDE 40 MG/4 ML VIAL IV ONE (10:30)
--- NOTE | 2019-06-11 11:15 | NUR ---
Telemetry admit from LAIS[facility] BOURGEOIS admitted to Telemetry unit. Patient oriented to unit, room, bed, and unit policies regarding patient care and visiting hours. Patient now on continuous telemetry monitoring, tele box # 41 and telemetry reading on arrival to unit is paced 74. Patient placed on bedside oxygen, weighed by bedscale and encouraged to call if he need something. All questions and concerns addressed, patient verbalized understanding.
[2019-06-11 13:00] VITALS: BP 134/98
[2019-06-11 17:07] VITALS: BP 128/85
[2019-06-11] MEDS ORDERED: ENAL5TAB85 PO (17:11)
[2019-06-11] MEDS ORDERED: ATOR80TA PO (17:11)
[2019-06-11] MEDS ORDERED: FURO1TAB32 PO (17:11)
[2019-06-11] MEDS ORDERED: CARV12.544 PO (17:11)
[2019-06-11] MEDS ORDERED: LEVO75TA6 PO (17:11)
[2019-06-11] MEDS ORDERED: CARV6.2551 PO (17:11)
[2019-06-11] MEDS ORDERED: DIGO0.2570 PO (17:15)
--- NOTE | 2019-06-11 17:16 | NUR ---
Med Rec Updated medication reconciliation as per patient's mother Kathy ([phone]).
--- NOTE | 2019-06-11 17:18 | NUR ---
Next of Kin Mother Kathy provided phone number ([phone]) and states she can be reached at anytime day or night. She also mentioned that the patient was diagnosed with dementia.
[2019-06-11] MEDS: FUROSEMIDE 40 MG/4 ML VIAL IV SCH (17:59)
--- NOTE | 2019-06-11 19:10 | NUR ---
Cardiology Consult Dr. Tanner in to see patient for consult. Verbal orders received and entered in eMAR. As per Dr. Tanner, Patient follows DR. Gonzales in office, so he will recommend that Dr. Gonzales follows him here in hospital.
--- NOTE | 2019-06-11 19:20 | NUR ---
Opening Shift Note Assumed care of patient, awake and alert. No S/S of distress/SOB or pain. Safety measures in place bed in lowest position, side rails x2 up, and call light within reach Instructed on POC and to call for assist PRN, will continue to monitor for changes Q1hr and PRN.
--- NOTE | 2019-06-11 20:00 | NUR ---
Patient unable to reconcile medication stating he does not know what he takes regularly. Daytime RN was able to reconciled medication with patient's mother.
[2019-06-11 22:00] VITALS: BP 120/73
[2019-06-11] MEDS ORDERED: ENOXAPARIN SOD 100 MG/1 ML SYRINGE SC SCH (22:00)
[2019-06-11] MEDS ORDERED: CARVEDILOL 3.125 MG TAB PO SCH (22:00)
[2019-06-11] MEDS: ATORVASTATIN 20 MG TAB PO SCH (22:10)
[2019-06-11] MEDS: busPIRone HCL 10 MG TAB PO SCH (22:11)
[2019-06-11] MEDS: CARVEDILOL 3.125 MG TAB PO SCH (22:11)
[2019-06-11] MEDS: ENALAPRIL MALEATE 2.5 MG TAB PO SCH (22:12)
[2019-06-12 05:00] VITALS: BP 121/79
[2019-06-12] MEDS: FUROSEMIDE 40 MG/4 ML VIAL IV SCH ×2 (05:58→17:37)
[2019-06-12 06:37] LABS: Basophils # (auto) 0.1 uL; Basophils % (auto) 0.7 % (0.0-2.0); Eosinophils # (auto) 0.1 uL; Eosinophils % (auto) 1.7 % (0.0-7.0); Hematocrit 39.6 % (41.0-53.0); Hemoglobin 13.4 g/dL (13.5-17.5); Mean Corpuscular Hemoglobin 31.7 pg (28.0-32.0); Mean Corpuscular Hgb Conc. 33.8 g/dL (32.0-36.0); Mean Corpuscular Volume 93.8 fL (80.0-100.0); Monocytes # (auto) 0.6 uL; Monocytes % (auto) 8.2 % (0.0-12.0); Neutrophils # (auto) 5.4 uL; Neutrophils % (auto) 75.4 % (37.0-80.0); Nucleated Red Blood Cells % 0.1 %; Platelet Count (auto) 260 10^3/uL (140-450); Red Blood Cells 4.22 10^6/uL (4.5-5.90); Red Cell Distribution Width 15.4 % (11.8-14.3); White Blood Cell 7.2 10^3/uL (4.4-10.8)
[2019-06-12] MEDS: LEVOTHYROXINE SODIUM 50 MCG TAB PO SCH (06:38)
[2019-06-12 06:46] LABS: INR 1.01 (0.9-1.15); Partial Thromboplastin Time 27.3 sec (23.64-32.05)
[2019-06-12 06:50] LABS: Albumin 3.2 g/dL (3.4-5.0); Calcium 8.5 mg/dL (8.5-10.1); Cholesterol 113 mg/dL (< 200); Magnesium 2.4 mg/dL (1.6-2.6); Potassium 3.5 mmol/L (3.5-5.1)
[2019-06-12 06:53] LABS: BUN/Creatinine Ratio 17.9; HDL Cholesterol 28 mg/dL (40-59); LDL Cholesterol 80 mg/dL (< 100); Phosphorus 3.7 mg/dL (2.5-4.90); Total Protein 6.4 g/dL (6.4-8.2); Triglycerides 152 mg/dL (< 150)
--- NOTE | 2019-06-12 08:00 | NUR ---
Opening Shift Note Assumed care of patient, resting with eyes closed, wakes easily to sound. No S/S of distress/SOB or pain. Instructed on POC and to call for assist PRN, will continue to monitor for changes Q1hr and PRN.
[2019-06-12 09:00] VITALS: BP 119/72
[2019-06-12] MEDS: ENALAPRIL MALEATE 2.5 MG TAB PO SCH ×2 (10:24→22:52)
[2019-06-12] MEDS: PANTOPRAZOLE 40 MG/10 ML VIAL INJ IV SCH (10:24)
[2019-06-12] MEDS: SPIRONOLACTONE 25 MG TAB PO SCH (10:24)
[2019-06-12] MEDS: CARVEDILOL 3.125 MG TAB PO SCH ×2 (10:25→22:52)
[2019-06-12] MEDS: DIGOXIN 0.25 MG TAB PO SCH (10:25)
[2019-06-12] MEDS: ASPirin 81 mg TAB PO SCH (10:26)
[2019-06-12] MEDS: busPIRone HCL 10 MG TAB PO SCH ×2 (10:26→22:53)
[2019-06-12] MEDS: CITALOPRAM HYDROBR 20 MG TAB PO SCH (10:26)
[2019-06-12 13:00] VITALS: BP 109/64
[2019-06-12 17:07] VITALS: BP 110/55
--- NOTE | 2019-06-12 19:20 | NUR ---
Opening Shift Note Assumed care of patient, awake and alert. No S/S of distress/SOB or pain. Safety measures in place bed in lowest position, side rails x2 up, and call light within reach. Instructed on POC and to call for assist PRN, will continue to monitor for changes Q1hr and PRN.
--- NOTE | 2019-06-12 21:30 | NUR ---
Patient refusing new IV, requesting to wait until he wakes up. Will continue to monitor.
--- NOTE | 2019-06-12 21:30 | NUR ---
IV removal IV DC'd with sterile technique, catheter fully intact. Pressure dressing applied to site. Patient tolerated procedure well.
[2019-06-12 22:00] VITALS: BP 100/61
[2019-06-12] MEDS: ATORVASTATIN 20 MG TAB PO SCH (22:52)
[2019-06-13 05:00] VITALS: BP 99/68
--- NOTE | 2019-06-13 05:15 | NUR ---
IV insertion IV access obtained, via clean sterile technique by inserting 20 gauge catheter at right forearm after 1 attempt. IV secured properly. No trauma to site. Patient tolerated procedure well.
[2019-06-13] MEDS: FUROSEMIDE 40 MG/4 ML VIAL IV SCH (06:00)
[2019-06-13 06:16] LABS: BUN/Creatinine Ratio 24.7; Calcium 8.6 mg/dL (8.5-10.1); Potassium 3.4 mmol/L (3.5-5.1)
[2019-06-13 06:35] LABS: Basophils # (auto) 0 uL; Basophils % (auto) 0.6 % (0.0-2.0); Eosinophils # (auto) 0.1 uL; Eosinophils % (auto) 1.8 % (0.0-7.0); Hemoglobin 13.7 g/dL (13.5-17.5); Lymphocytes # (auto) 1.2 uL; Lymphocytes % (auto) 14.7 % (10.0-50.0); Mean Corpuscular Hgb Conc. 33.5 g/dL (32.0-36.0); Mean Corpuscular Volume 92.8 fL (80.0-100.0); Monocytes # (auto) 0.7 uL; Monocytes % (auto) 9.1 % (0.0-12.0); Neutrophils % (auto) 73.8 % (37.0-80.0); Nucleated Red Blood Cells % 0.1 %; Platelet Count (auto) 275 10^3/uL (140-450); Red Blood Cells 4.42 10^6/uL (4.5-5.90); Red Cell Distribution Width 15.3 % (11.8-14.3); White Blood Cell 8.1 10^3/uL (4.4-10.8)
[2019-06-13] MEDS: LEVOTHYROXINE SODIUM 50 MCG TAB PO SCH (06:50)
--- NOTE | 2019-06-13 08:00 | NUR ---
Opening Shift Note Assumed care of patient, awake and alert. No S/S of distress/SOB or pain. Denies needing anything at this time. Instructed on POC and to call for assist PRN, will continue to monitor for changes Q1hr and PRN.
[2019-06-13 09:00] VITALS: BP 112/71
[2019-06-13] MEDS: CITALOPRAM HYDROBR 20 MG TAB PO SCH (10:19)
[2019-06-13] MEDS: busPIRone HCL 10 MG TAB PO SCH (10:19)
[2019-06-13] MEDS: PANTOPRAZOLE 40 MG/10 ML VIAL INJ IV SCH (10:19)
[2019-06-13] MEDS: ENALAPRIL MALEATE 2.5 MG TAB PO SCH (10:20)
[2019-06-13] MEDS: ASPirin 81 mg TAB PO SCH (10:20)
[2019-06-13] MEDS: DIGOXIN 0.25 MG TAB PO SCH (10:20)
[2019-06-13] MEDS: SPIRONOLACTONE 25 MG TAB PO SCH (10:20)
[2019-06-13] MEDS: CARVEDILOL 3.125 MG TAB PO SCH (10:20)
[2019-06-13 13:00] VITALS: BP 103/60
--- NOTE | 2019-06-13 15:21 | NUR ---
Discharge Went over discharge paperwork with patient. No new prescriptions. Removed IV. Removed telemetry and sent to ICU. Patient called his mother and let her know he was discharged and needed a ride home. Waiting for ride at this time.
--- NOTE | 2019-06-13 15:54 | NUR ---
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 Patient left facility with all belongings.
== END 2019-06-13 15:55 | disposition home or self-care (01) | DRG 194 ==
LOC: EDBD 02:48 → ER 02:49 → TELE 02:50 → TELE-CENTR 11:25
PROVIDERS: ADMIT Hospitalist; ATTEND Hospitalist
DX: I11.0 Hypertensive heart disease with heart failure (principal); D68.69 Other thrombophilia; I27.20 Pulmonary hypertension, unspecified; I48.92 Unspecified atrial flutter; Z99.81 Dependence on supplemental oxygen; I48.91 Unspecified atrial fibrillation; I42.9 Cardiomyopathy, unspecified; F03.90 Unspecified dementia, unspecified severity, without behavioral disturbance, psychotic disturbance, mood disturbance, and anxiety; F15.10 Other stimulant abuse, uncomplicated; I50.43 Acute on chronic combined systolic (congestive) and diastolic (congestive) heart failure; J44.9 Chronic obstructive pulmonary disease, unspecified; I25.10 Atherosclerotic heart disease of native coronary artery without angina pectoris; Z91.14 Patient's other noncompliance with medication regimen; I25.2 Old myocardial infarction; Z95.810 Presence of automatic (implantable) cardiac defibrillator; Z79.01 Long term (current) use of anticoagulants; Z79.899 Other long term (current) drug therapy; Z86.73 Personal history of transient ischemic attack (TIA), and cerebral infarction without residual deficits
CPT/HCPCS: 36415; 71045; 80048; 80053; 80061; 81001; 83036; 83735; 83880; 84100; 84443; 84484; 85025; 85610; 85730; 93005; 93306; 96374; 96375; C9113; G0378

== ENCOUNTER 2019-11-04 02:22 | Inpatient (IN) | payer MEDICAID ==
[~2019-11-04] VITALS: Ht 177.8 cm; Wt 104.0 kg
[~2019-11-04 02:22] MED LIST changes: +ATOR80TA PO; +CARV12.544 PO; +DIGO0.25 PO; -DIGO0.2570 PO; -ENAL5TAB PO; +ENAL5TAB85 PO; +FURO1TAB32 PO; -GEMF600T7 PO; -LEVO50TA7 PO; +LEVO75TA6 PO
[2019-11-04] MEDS ORDERED: ALBUTEROL SULF 2.5 MG/0.5ML(0.5%) NEB SOLN NEB STA (02:45)
[2019-11-04] MEDS ORDERED: IPRATROPIUM BROM 0.5 MG/2.5ML INH SOL NEB ONE (02:45)
[2019-11-04 03:28] LABS: Basophils # (auto) 0.1 10 ^3/uL (0-0.2); Basophils % (auto) 0.7 % (0.0-2.0); Eosinophils # (auto) 0.1 10 ^3/uL (0-0.8); Eosinophils % (auto) 1.1 % (0.0-7.0); Hematocrit 41.3 % (41.0-53.0); Hemoglobin 13.3 g/dL (13.5-17.5); Lymphocytes # (auto) 1.3 10 ^3/uL (0.4-5.4); Lymphocytes % (auto) 13.6 % (10.0-50.0); Mean Corpuscular Hemoglobin 30.7 pg (28.0-32.0); Mean Corpuscular Hgb Conc. 32.3 g/dL (32.0-36.0); Monocytes # (auto) 0.7 10 ^3/uL (0-1.3); Monocytes % (auto) 7.2 % (0.0-12.0); Neutrophils # (auto) 7.2 10 ^3/uL (1.6-8.6); Neutrophils % (auto) 77.4 % (37.0-80.0); Nucleated Red Blood Cells % 0.2 %; Platelet Count (auto) 268 10^3/uL (140-450); Red Blood Cells 4.35 10^6/uL (4.5-5.90); Red Cell Distribution Width 16.1 % (11.8-14.3); White Blood Cell 9.3 10^3/uL (4.4-10.8)
[2019-11-04 03:46] LABS: Albumin 3.5 g/dL (3.4-5.0); BUN/Creatinine Ratio 22.9; Calcium 8.4 mg/dL (8.5-10.1)
[2019-11-04 03:55] LABS: Bilirubin, Total 1.4 mg/dL (0.2-1.0); Total Protein 7.2 g/dL (6.4-8.2)
[2019-11-04] MEDS ORDERED: FUROSEMIDE 20 MG/2 ML VIAL IV ONE ×2 (04:00→06:15)
[2019-11-04 04:49] LABS: Urine Bacteria FEW /hpf (None Seen); Urine Blood Negative /uL (Negative); Urine Hyaline Cast FEW /lpf (0 - 2); Urine Mucus FEW (None Seen); Urine Specific Gravity 1.011 (1.001-1.035); Urine WBC 2 /hpf (0 - 3)
[2019-11-04] MEDS ORDERED: TEMAZEPAM 15 MG CAP PO PRN (07:00)
[2019-11-04] MEDS ORDERED: ONDANSETRON HCL 4 MG/2 ML VIAL IV PRN (07:00)
[2019-11-04] MEDS ORDERED: ACETAMINOPHEN 325 MG TAB PO PRN (07:00)
[2019-11-04] MEDS ORDERED: LEVOTHYROXINE SODIUM 25 MCG TAB PO SCH (07:00)
[2019-11-04] MEDS ORDERED: NITROGLYCERIN 0.4 MG SL TAB SL PRN (07:00)
[2019-11-04] MEDS ORDERED: MORPHINE SULF INJ 2 MG/ML SYRINGE 1ML IV PRN (07:00)
[2019-11-04 07:28] LABS: Alcohol, Urine < 3.0 mg/dL (0-5); Amphetamine Screen, Urine POSITIVE (NEGATIVE); Barbiturate Scree,Urine NEGATIVE (NEGATIVE); Benzodiazephine Screen, Urine NEGATIVE (NEGATIVE); Cannabinoid Screen, Urine NEGATIVE (NEGATIVE); Cocaine Screen, Urine NEGATIVE (NEGATIVE); Opiate Scree,Urine NEGATIVE (NEGATIVE); Phencyclidine Screen, Urine NEGATIVE (NEGATIVE)
--- NOTE | 2019-11-04 07:55 | NUR ---
Telemetry admit from [facility] admitted to Telemetry unit after SBAR received. Patient oriented to LORI MCFARLANE RN primary RN, unit, room, bed, and unit policies regarding patient care and visiting hours. Patient now on continuous telemetry monitoring, tele box #38. Patient placed on bedside oxygen, weighed by bedscale and encouraged to call if they need something. All questions and concerns addressed, patient verbalized understanding. Fall precaution in place per safety protocol.
[2019-11-04 08:06] LABS: INR 1.17 (0.9-1.15); Partial Thromboplastin Time 29.6 sec (23.64-32.05)
[2019-11-04 09:00] VITALS: BP 128/88
[2019-11-04] MEDS ORDERED: ASPirin 81 mg TAB PO SCH (10:00)
[2019-11-04] MEDS: POTASSIUM CHL 10 Meq TABLET PO SCH (10:00)
[2019-11-04] MEDS: FAMOTIDINE 20 MG TAB PO SCH ×2 (10:47→21:35)
[2019-11-04] MEDS: DIGOXIN 0.25 MG TAB PO SCH (10:48)
[2019-11-04] MEDS: APIXABAN 5 MG TAB PO SCH ×2 (10:48→21:37)
[2019-11-04] MEDS: CARVEDILOL 12.5 MG TAB PO SCH ×2 (10:49→21:37)
[2019-11-04] MEDS: ENALAPRIL MALEATE 2.5 MG TAB PO SCH ×2 (10:49→21:36)
[2019-11-04 13:00] VITALS: BP 114/70
--- NOTE | 2019-11-04 14:47 | NUR ---
Patient had a run of A-fib. Patient assessed and found to be asymptomatic. MD Palomares made aware and orders new labs to be drawn. VSS: BP119/76 HR 76 O2 93%. Will cont to monitor patient.
[2019-11-04] MEDS ORDERED: MAGNESIUM SULFATE 1GM/100ML 100 ML IV SCH (15:00)
[2019-11-04] MEDS ORDERED: LORazepam 0.5 MG TAB PO PRN (15:00)
[2019-11-04] MEDS ORDERED: MAGNESIUM SULFATE 1GM/100ML 100 ML IV ONE (15:45)
[2019-11-04 17:00] VITALS: BP 109/75
[2019-11-04] MEDS: FUROSEMIDE 20 MG/2 ML VIAL IV SCH (17:38)
--- NOTE | 2019-11-04 19:05 | NUR ---
Endorsed report to night SHI Macario. Patient resting in bed, no distress, sob, or pain noted at this time.
--- NOTE | 2019-11-04 19:30 | NUR ---
Opening Shift Note Report received from day shift RN. Patient awake sitting in bed and A&O x4. No S/S of distress/SOB noted and denies pain at this time. Instructed on POC and to call for assist PRN, will continue to monitor for changes Q1hr and PRN.
[2019-11-04 22:00] VITALS: BP 126/72
[2019-11-04] MEDS ORDERED: ATORVASTATIN 20 MG TAB PO SCH (22:00)
[2019-11-05 05:28] LABS: Basophils # (auto) 0.1 10 ^3/uL (0-0.2); Basophils % (auto) 0.9 % (0.0-2.0); Eosinophils # (auto) 0.2 10 ^3/uL (0-0.8); Hematocrit 39.5 % (41.0-53.0); Hemoglobin 13.5 g/dL (13.5-17.5); Lymphocytes # (auto) 1.2 10 ^3/uL (0.4-5.4); Lymphocytes % (auto) 17.5 % (10.0-50.0); Mean Corpuscular Hgb Conc. 34.1 g/dL (32.0-36.0); Mean Corpuscular Volume 93.9 fL (80.0-100.0); Monocytes # (auto) 0.5 10 ^3/uL (0-1.3); Monocytes % (auto) 7.9 % (0.0-12.0); Neutrophils # (auto) 4.8 10 ^3/uL (1.6-8.6); Neutrophils % (auto) 70.7 % (37.0-80.0); Nucleated Red Blood Cells % 0.1 %; Platelet Count (auto) 230 10^3/uL (140-450); Red Blood Cells 4.21 10^6/uL (4.5-5.90); White Blood Cell 6.8 10^3/uL (4.4-10.8)
[2019-11-05 05:44] LABS: BUN/Creatinine Ratio 24.1; Calcium 8.7 mg/dL (8.5-10.1); Potassium 3.8 mmol/L (3.5-5.1)
[2019-11-05 05:47] VITALS: BP 118/87
[2019-11-05] MEDS: FUROSEMIDE 20 MG/2 ML VIAL IV SCH (06:15)
[2019-11-05] MEDS ORDERED: LEVOTHYROXINE SODIUM 25 MCG TAB PO SCH (07:00)
--- NOTE | 2019-11-05 07:15 | NUR ---
Opening Shift Note Assumed care of patient, awake and alert. Patient on 2.5 L NC. No S/S of distress/SOB or pain. Instructed on POC and to call for assist PRN, will continue to monitor for changes Q1hr and PRN. Fall precautions in place per safety protocol.
[2019-11-05 08:00] VITALS: BP 113/74
[2019-11-05 09:00] VITALS: BP 113/74
[2019-11-05] MEDS: ENALAPRIL MALEATE 2.5 MG TAB PO SCH (10:00)
[2019-11-05] MEDS ORDERED: ASPirin 81 mg TAB PO SCH (10:00)
[2019-11-05] MEDS: POTASSIUM CHL 10 Meq TABLET PO SCH (10:15)
[2019-11-05] MEDS: CARVEDILOL 12.5 MG TAB PO SCH (10:16)
[2019-11-05] MEDS: APIXABAN 5 MG TAB PO SCH (10:16)
[2019-11-05] MEDS: FAMOTIDINE 20 MG TAB PO SCH (10:16)
[2019-11-05] MEDS: DIGOXIN 0.25 MG TAB PO SCH (10:16)
[2019-11-05] MEDS ORDERED: LEV25T PO (10:39)
--- NOTE | 2019-11-05 11:30 | NUR ---
Hospitalist at bedside MD amher at bedside, aware of patient status. MD Maher ordered follow-up chest x-ray. Pending cardio consult with MD Mike Gonzales. Per MD Maher, if MD. Gonzales clears patient for discharge, patient can be discharged. Will cont to monitor patient.
[2019-11-05 13:00] VITALS: BP 105/71
[2019-11-05 17:00] VITALS: BP 100/71
[2019-11-05 17:32] VITALS: BP 105/71
--- NOTE | 2019-11-05 18:00 | NUR ---
Discharge instructions given as ordered. Encourage to follow up with PMD as instructed. All questions and concerns addressed. Patient verbalized understanding. Medication reconciliation form completed and copy given to patient. IV removed with catheter intact, pressure dressing applied. Telemetry unit returned to ICU. Patient requesting to walk to vehicle with all personal belongings. No distress noted at time of departure.
== END 2019-11-05 18:00 | disposition home or self-care (01) | DRG 194 ==
LOC: EDBD 02:22 → ER 02:24 → TELE 02:25 → TELE-CENTR 07:57
PROVIDERS: ADMIT Nurse Practitioner; ATTEND Internal Medicine
DX: I11.0 Hypertensive heart disease with heart failure (principal); I21.4 Non-ST elevation (NSTEMI) myocardial infarction; J96.00 Acute respiratory failure, unspecified whether with hypoxia or hypercapnia; I50.43 Acute on chronic combined systolic (congestive) and diastolic (congestive) heart failure; G47.30 Sleep apnea, unspecified; I42.7 Cardiomyopathy due to drug and external agent; E66.9 Obesity, unspecified; I25.10 Atherosclerotic heart disease of native coronary artery without angina pectoris; J44.9 Chronic obstructive pulmonary disease, unspecified; E03.9 Hypothyroidism, unspecified; F15.10 Other stimulant abuse, uncomplicated; I25.2 Old myocardial infarction; Z86.73 Personal history of transient ischemic attack (TIA), and cerebral infarction without residual deficits; Z95.810 Presence of automatic (implantable) cardiac defibrillator; Z88.0 Allergy status to penicillin; Z79.899 Other long term (current) drug therapy; Z68.32 Body mass index [BMI] 32.0-32.9, adult; Z99.81 Dependence on supplemental oxygen
CPT/HCPCS: 36415; 71045; 80048; 80053; 80307; 81001; 83735; 83880; 84443; 84484; 85025; 85610; 85730; 93005; 94640; 96365; 96375; G0378

== ENCOUNTER 2019-12-02 22:45 | Inpatient (IN) | payer MEDICAID ==
[~2019-12-02] VITALS: Ht 177.8 cm; Wt 107.8 kg
[~2019-12-02 22:45] MED LIST changes: +LEV25T PO; -LEVO75TA6 PO; -SPIR25TA88 PO
[2019-12-03] MEDS ORDERED: FUROSEMIDE 40 MG/4 ML VIAL IV ONE
[2019-12-03 00:04] LABS: Albumin 3.3 g/dL (3.4-5.0); BUN/Creatinine Ratio 26.2; Calcium 8.7 mg/dL (8.5-10.1); Potassium 4.9 mmol/L (3.5-5.1)
[2019-12-03 00:05] LABS: Basophils # (auto) 0.1 10 ^3/uL (0-0.2); Basophils % (auto) 1.1 % (0.0-2.0); Eosinophils # (auto) 0.2 10 ^3/uL (0-0.8); Eosinophils % (auto) 2.4 % (0.0-7.0); Hematocrit 37.5 % (41.0-53.0); Hemoglobin 12.5 g/dL (13.5-17.5); INR 1.34 (0.9-1.15); Lymphocytes # (auto) 1.5 10 ^3/uL (0.4-5.4); Lymphocytes % (auto) 20.7 % (10.0-50.0); Mean Corpuscular Hemoglobin 31.6 pg (28.0-32.0); Mean Corpuscular Hgb Conc. 33.3 g/dL (32.0-36.0); Mean Corpuscular Volume 94.7 fL (80.0-100.0); Monocytes # (auto) 0.6 10 ^3/uL (0-1.3); Neutrophils # (auto) 4.8 10 ^3/uL (1.6-8.6); Neutrophils % (auto) 66.8 % (37.0-80.0); Nucleated Red Blood Cells % 0.2 %; Partial Thromboplastin Time 31.5 sec (23.64-32.05); Platelet Count (auto) 275 10^3/uL (140-450); Red Blood Cells 3.96 10^6/uL (4.5-5.90); Red Cell Distribution Width 16.4 % (11.8-14.3); White Blood Cell 7.1 10^3/uL (4.4-10.8)
[2019-12-03 00:09] LABS: Bilirubin, Total 1.2 mg/dL (0.2-1.0)
[2019-12-03] MEDS ORDERED: ENOXAPARIN SOD 100 MG/1 ML SYRINGE SC ONE (06:45)
[2019-12-03] MEDS ORDERED: TEMAZEPAM 15 MG CAP PO PRN (07:45)
[2019-12-03] MEDS ORDERED: ACETAMINOPHEN 325 MG TAB PO PRN (07:45)
[2019-12-03] MEDS ORDERED: NITROGLYCERIN 0.4 MG SL TAB SL PRN (07:45)
[2019-12-03] MEDS ORDERED: MORPHINE SULF INJ 2 MG/ML SYRINGE 1ML IV PRN (07:45)
[2019-12-03] MEDS ORDERED: ONDANSETRON HCL 4 MG/2 ML VIAL IV PRN (07:45)
[2019-12-03] MEDS ORDERED: IOHEXOL 350 MG/ML 100ML IJ ONE (09:39)
[2019-12-03 10:20] VITALS: BP 138/60
--- NOTE | 2019-12-03 10:25 | NUR ---
Telemetry admit from [facility] BOURGEO[facility] admitted to Telemetry unit after SBAR received. Patient oriented to Elsa Alexander RN primary RN, unit, room, bed, and unit policies regarding patient care and visiting hours. Patient now on continuous telemetry monitoring, tele box #75 and telemetry reading on arrival to unit is SR. Patient placed on bedside oxygen at 3L nasal cannula. Weighed by bedscale and encouraged to call if they need something. All questions and concerns addressed, patient verbalized understanding. Patient is alert and oriented x4. No SOB/CP at this time. IV to left wrist patent and intact. On 3L nasal cannula with O2 saturations at 97%. Ambulates independently with steady gait. Bed is low, locked with 2x side rails up. Call light is within reach. Will continue to monitor Q1hr and PRN.
--- NOTE | 2019-12-03 10:40 | NUR ---
Urine sample Provided patient with supplies to provide urine sample. Patient states he does not need to void at this time. Will continue to monitor.
--- NOTE | 2019-12-03 11:00 | NUR ---
MRSA MRSA swab sent to lab.
[2019-12-03] MEDS: ENALAPRIL MALEATE 2.5 MG TAB PO SCH ×2 (11:18→22:00)
[2019-12-03] MEDS: FAMOTIDINE 20 MG TAB PO SCH ×2 (11:18→22:00)
[2019-12-03] MEDS: DIGOXIN 0.25 MG TAB PO SCH (11:19)
[2019-12-03] MEDS: CARVEDILOL 3.125 MG TAB PO SCH ×2 (11:19→22:01)
[2019-12-03] MEDS: APIXABAN 5 MG TAB PO SCH ×2 (11:19→21:58)
[2019-12-03] MEDS: FUROSEMIDE 20 MG/2 ML VIAL IV SCH ×2 (11:33→17:49)
--- NOTE | 2019-12-03 12:31 | NUR ---
CTA chest This nurse informed MD Moon about patient's CTA chest showing ground glass opacities as well as abnormal liver enzymes in addition to patient c/o SOB; No new orders received at this time. Will continue to monitor.
--- NOTE | 2019-12-03 12:55 | NUR ---
Urine Sample Patient has still not provided urine sample needed for UA/Drug screen as per MD orders.
[2019-12-03 13:00] VITALS: BP 102/68
--- NOTE | 2019-12-03 15:20 | NUR ---
UA Urine sample sent to lab.
[2019-12-03 16:50] LABS: Urine Bacteria NONE SEEN /hpf (None Seen); Urine Blood Negative /uL (Negative); Urine Specific Gravity 1.012 (1.001-1.035); Urine WBC 1 /hpf (0 - 3)
[2019-12-03 17:00] VITALS: BP 92/54
[2019-12-03 17:03] LABS: Alcohol, Urine < 3.0 mg/dL (0-5); Amphetamine Screen, Urine POSITIVE (NEGATIVE); Barbiturate Scree,Urine NEGATIVE (NEGATIVE); Benzodiazephine Screen, Urine NEGATIVE (NEGATIVE); Cannabinoid Screen, Urine NEGATIVE (NEGATIVE); Cocaine Screen, Urine NEGATIVE (NEGATIVE); Opiate Scree,Urine NEGATIVE (NEGATIVE); Phencyclidine Screen, Urine NEGATIVE (NEGATIVE)
[2019-12-03] MEDS ORDERED: FUROSEMIDE 20 MG/2 ML VIAL IV SCH (18:00)
--- NOTE | 2019-12-03 19:55 | NUR ---
assumed care, pt. awake, no c/o pain, no sob.
[2019-12-03 22:00] VITALS: BP 103/72
[2019-12-03] MEDS ORDERED: ATORVASTATIN 20 MG TAB PO SCH (22:00)
[2019-12-04 05:00] VITALS: BP 126/66
[2019-12-04] MEDS: FUROSEMIDE 20 MG/2 ML VIAL IV SCH (05:35)
[2019-12-04 06:07] LABS: Basophils # (auto) 0.1 10 ^3/uL (0-0.2); Basophils % (auto) 0.7 % (0.0-2.0); Eosinophils # (auto) 0.3 10 ^3/uL (0-0.8); Eosinophils % (auto) 4.3 % (0.0-7.0); Hematocrit 39.6 % (41.0-53.0); Hemoglobin 12.9 g/dL (13.5-17.5); Lymphocytes # (auto) 1.4 10 ^3/uL (0.4-5.4); Lymphocytes % (auto) 17.2 % (10.0-50.0); Mean Corpuscular Hemoglobin 30.6 pg (28.0-32.0); Mean Corpuscular Hgb Conc. 32.6 g/dL (32.0-36.0); Mean Corpuscular Volume 93.8 fL (80.0-100.0); Monocytes # (auto) 0.6 10 ^3/uL (0-1.3); Neutrophils # (auto) 5.5 10 ^3/uL (1.6-8.6); Neutrophils % (auto) 69.8 % (37.0-80.0); Nucleated Red Blood Cells % 0.1 %; Platelet Count (auto) 287 10^3/uL (140-450); Red Blood Cells 4.22 10^6/uL (4.5-5.90); Red Cell Distribution Width 16.2 % (11.8-14.3); White Blood Cell 7.9 10^3/uL (4.4-10.8)
[2019-12-04 06:23] LABS: Potassium 3.9 mmol/L (3.5-5.1)
[2019-12-04 06:27] LABS: BUN/Creatinine Ratio 31.1
[2019-12-04] MEDS ORDERED: LEVOTHYROXINE SODIUM 100 MCG TAB PO SCH (07:00)
--- NOTE | 2019-12-04 07:30 | NUR ---
Opening Shift Note Assumed care of patient, awake and alert. No S/S of distress/SOB or pain. Instructed on POC and to call for assist PRN, will continue to monitor for changes Q1hr and PRN.
[2019-12-04 08:54] VITALS: BP 109/81
[2019-12-04] MEDS: DIGOXIN 0.25 MG TAB PO SCH (10:20)
[2019-12-04] MEDS: CARVEDILOL 3.125 MG TAB PO SCH (10:20)
[2019-12-04] MEDS: APIXABAN 5 MG TAB PO SCH (10:20)
[2019-12-04] MEDS: FAMOTIDINE 20 MG TAB PO SCH (10:20)
[2019-12-04] MEDS: ENALAPRIL MALEATE 2.5 MG TAB PO SCH (10:21)
[2019-12-04 13:12] VITALS: BP 106/65
[2019-12-04] MEDS ORDERED: FUROSEMIDE 20 MG/2 ML VIAL IV SCH (14:00)
--- NOTE | 2019-12-04 14:00 | NUR ---
Patient states he wants to go home. He states "it is time to go home". States he will sign AMA. Encouraged patient to stay for treatment. Will inform Dr. Moon.
--- NOTE | 2019-12-04 14:30 | NUR ---
AMA Note LAISHA ORDAZ states they want to leave the hospital Against Medical Advice (AMA). Patient encouraged to stay for further treatment/stabilization. Dr. Red JORGE notified of patient's wishes. Patient advised of the risks and benefits of leaving AMA. Patient verbalized understanding. Patient encouraged to return to the ER if symptoms do not improve or worsen.
== END 2019-12-04 14:25 | disposition left against medical advice (07) | DRG 194 ==
LOC: EDBD 22:45 → ER 22:49 → TELE 22:50 → TELE-WESTW 12-03 10:38
PROVIDERS: ADMIT Nurse Practitioner; ATTEND Internal Medicine
DX: I11.0 Hypertensive heart disease with heart failure (principal); I21.A1 Myocardial infarction type 2; I42.0 Dilated cardiomyopathy; I50.43 Acute on chronic combined systolic (congestive) and diastolic (congestive) heart failure; I25.10 Atherosclerotic heart disease of native coronary artery without angina pectoris; J44.9 Chronic obstructive pulmonary disease, unspecified; R79.89 Other specified abnormal findings of blood chemistry; F15.10 Other stimulant abuse, uncomplicated; E03.9 Hypothyroidism, unspecified; Z79.899 Other long term (current) drug therapy; Z86.73 Personal history of transient ischemic attack (TIA), and cerebral infarction without residual deficits; I25.2 Old myocardial infarction; Z95.0 Presence of cardiac pacemaker; Z88.0 Allergy status to penicillin; Y92.89 Other specified places as the place of occurrence of the external cause; I42.7 Cardiomyopathy due to drug and external agent; T50.905A Adverse effect of unspecified drugs, medicaments and biological substances, initial encounter
CPT/HCPCS: 36415; 71045; 71275; 76705; 80048; 80053; 80162; 80307; 81001; 83880; 84484; 85025; 85379; 85610; 85730; 87081; 93005; 96374; 96375; 99291; G0378

== ENCOUNTER 2019-12-10 02:09 | Inpatient (IN) | payer MEDICAID ==
[~2019-12-10] VITALS: Ht 177.8 cm; Wt 108.0 kg
[~2019-12-10 02:09] MED LIST changes: -CARV6.2551 PO
[2019-12-10 03:20] LABS: Basophils # (auto) 0.1 10 ^3/uL (0-0.2); Eosinophils # (auto) 0.3 10 ^3/uL (0-0.8); Eosinophils % (auto) 2.9 % (0.0-7.0); Hematocrit 40.5 % (41.0-53.0); Hemoglobin 13.2 g/dL (13.5-17.5); Lymphocytes # (auto) 1.5 10 ^3/uL (0.4-5.4); Lymphocytes % (auto) 17.1 % (10.0-50.0); Mean Corpuscular Hemoglobin 30.8 pg (28.0-32.0); Mean Corpuscular Hgb Conc. 32.5 g/dL (32.0-36.0); Mean Corpuscular Volume 94.6 fL (80.0-100.0); Monocytes # (auto) 0.6 10 ^3/uL (0-1.3); Monocytes % (auto) 6.7 % (0.0-12.0); Neutrophils # (auto) 6.3 10 ^3/uL (1.6-8.6); Neutrophils % (auto) 72.3 % (37.0-80.0); Nucleated Red Blood Cells % 0.1 %; Platelet Count (auto) 303 10^3/uL (140-450); Red Blood Cells 4.28 10^6/uL (4.5-5.90); Red Cell Distribution Width 16.3 % (11.8-14.3); White Blood Cell 8.7 10^3/uL (4.4-10.8)
[2019-12-10 03:38] LABS: Albumin 3.4 g/dL (3.4-5.0); Calcium 8.6 mg/dL (8.5-10.1); Potassium 4.3 mmol/L (3.5-5.1)
[2019-12-10 03:41] LABS: BUN/Creatinine Ratio 20.5
[2019-12-10 03:45] LABS: Bilirubin, Total 1.3 mg/dL (0.2-1.0); Total Protein 7.3 g/dL (6.4-8.2)
[2019-12-10] MEDS ORDERED: FUROSEMIDE 40 MG/4 ML VIAL IV ONE (03:45)
[2019-12-10 04:57] LABS: Urine Bacteria FEW /hpf (None Seen); Urine Blood Negative /uL (Negative); Urine Specific Gravity 1.011 (1.001-1.035); Urine Sperm PRESENT /hpf (None Seen); Urine WBC 1 /hpf (0 - 3)
[2019-12-10] MEDS ORDERED: TEMAZEPAM 15 MG CAP PO PRN (05:15)
[2019-12-10] MEDS ORDERED: ONDANSETRON HCL 4 MG/2 ML VIAL IV PRN (05:15)
[2019-12-10] MEDS ORDERED: MORPHINE SULF INJ 2 MG/ML SYRINGE 1ML IV PRN (05:30)
[2019-12-10] MEDS ORDERED: NITROGLYCERIN 0.4 MG SL TAB SL PRN (05:30)
[2019-12-10 05:57] LABS: Alcohol, Urine < 3.0 mg/dL (0-5); Amphetamine Screen, Urine POSITIVE (NEGATIVE); Barbiturate Scree,Urine NEGATIVE (NEGATIVE); Benzodiazephine Screen, Urine NEGATIVE (NEGATIVE); Cannabinoid Screen, Urine NEGATIVE (NEGATIVE); Cocaine Screen, Urine NEGATIVE (NEGATIVE); Opiate Scree,Urine NEGATIVE (NEGATIVE); Phencyclidine Screen, Urine NEGATIVE (NEGATIVE)
[2019-12-10 05:58] LABS: INR 1.25 (0.9-1.15); Partial Thromboplastin Time 28.5 sec (23.64-32.05)
[2019-12-10] MEDS ORDERED: FUROSEMIDE 40 MG/4 ML VIAL IV SCH (06:00)
--- NOTE | 2019-12-10 06:20 | NUR ---
Telemetry admit from LAISHA BOURGEOIS admitted to Telemetry unit after SBAR received. Patient oriented to Virginia Nguyễn, primary RN, unit, room, bed, and unit policies regarding patient care and visiting hours. Patient now on continuous telemetry monitoring, tele box #69 and telemetry reading on arrival to unit is SR at 96. Patient placed on bedside oxygen at 3L, weighed by bedscale and encouraged to call if they need something. All questions and concerns addressed, patient verbalized understanding.
[2019-12-10] MEDS: FUROSEMIDE 100 MG/10ML VIAL IV SCH ×2 (07:11→18:02)
[2019-12-10] MEDS: LEVOTHYROXINE SODIUM 100 MCG TAB PO SCH (07:11)
--- NOTE | 2019-12-10 07:49 | NUR ---
Care endorsed to SHI Marc.
[2019-12-10 09:34] VITALS: BP 143/96
[2019-12-10] MEDS: LACTULOSE 20Gm/30ML SOLN PO SCH (09:46)
[2019-12-10] MEDS: FAMOTIDINE 20 MG TAB PO SCH ×2 (09:46→22:56)
[2019-12-10] MEDS: ENALAPRIL MALEATE 2.5 MG TAB PO SCH ×2 (09:47→22:57)
[2019-12-10] MEDS: CARVEDILOL 12.5 MG TAB PO SCH ×2 (09:47→22:56)
[2019-12-10] MEDS: ASPirin 81 mg TAB PO SCH (09:48)
[2019-12-10] MEDS: DIGOXIN 0.25 MG TAB PO SCH (09:50)
--- NOTE | 2019-12-10 11:10 | NUR ---
DR. DOOLEY IN TO SEE PT.
[2019-12-10] MEDS: DOBUTamine 1000MCG/ML 250 ML IV SCH ×2 (12:26→18:02)
[2019-12-10 13:00] VITALS: BP 111/74
--- NOTE | 2019-12-10 14:09 | NUR ---
REQUESTED HOME MED LIST PT REPORTS WILL ASK FAMILY MEMBER TO BRING IN. MD AWARE.
[2019-12-10 16:44] VITALS: BP 110/61
--- NOTE | 2019-12-10 19:25 | NUR ---
Opening Shift Note Assumed care of patient, awake and alert. No S/S of distress/SOB or pain. Instructed on POC and to call for assist PRN, will continue to monitor for changes Q1hr and PRN. PATIENT RESTING IN BED, BED IN LOWEST POSITION, SIDE RALES UP X2, CALL LIGHT WITHIN REACH.
[2019-12-10 20:20] VITALS: BP 106/70
[2019-12-10 21:00] VITALS: BP 106/70
[2019-12-10] MEDS: ATORVASTATIN 20 MG TAB PO SCH (22:56)
[2019-12-11] MEDS: DOBUTamine 1000MCG/ML 250 ML IV SCH ×3 (02:56→14:29)
[2019-12-11 05:00] VITALS: BP 95/77
[2019-12-11] MEDS: FUROSEMIDE 100 MG/10ML VIAL IV SCH ×2 (06:10→18:09)
[2019-12-11 06:39] LABS: Basophils # (auto) 0.1 10 ^3/uL (0-0.2); Basophils % (auto) 0.6 % (0.0-2.0); Eosinophils # (auto) 0.3 10 ^3/uL (0-0.8); Hematocrit 36.6 % (41.0-53.0); Hemoglobin 12.3 g/dL (13.5-17.5); Lymphocytes # (auto) 0.9 10 ^3/uL (0.4-5.4); Lymphocytes % (auto) 10.8 % (10.0-50.0); Mean Corpuscular Hemoglobin 31.5 pg (28.0-32.0); Mean Corpuscular Hgb Conc. 33.7 g/dL (32.0-36.0); Mean Corpuscular Volume 93.5 fL (80.0-100.0); Monocytes # (auto) 0.6 10 ^3/uL (0-1.3); Monocytes % (auto) 7.2 % (0.0-12.0); Neutrophils # (auto) 6.2 10 ^3/uL (1.6-8.6); Neutrophils % (auto) 77.4 % (37.0-80.0); Platelet Count (auto) 261 10^3/uL (140-450); Red Blood Cells 3.91 10^6/uL (4.5-5.90); Red Cell Distribution Width 16.2 % (11.8-14.3)
[2019-12-11] MEDS: LEVOTHYROXINE SODIUM 100 MCG TAB PO SCH (06:51)
[2019-12-11 06:56] LABS: BUN/Creatinine Ratio 25.9; Calcium 8.5 mg/dL (8.5-10.1); Potassium 4.6 mmol/L (3.5-5.1)
--- NOTE | 2019-12-11 08:00 | NUR ---
Opening Shift Note Assumed care of patient, awake, alert, and oriented. No S/S of distress/SOB or pain. Bed in lowest/locked position, bed rails up x2, call light within reach. Instructed on POC and to call for assist PRN. Will continue to monitor for changes Q1hr and PRN.
[2019-12-11 09:00] VITALS: BP 125/56
[2019-12-11] MEDS: FAMOTIDINE 20 MG TAB PO SCH ×2 (09:08→21:44)
[2019-12-11] MEDS: LACTULOSE 20Gm/30ML SOLN PO SCH (09:08)
[2019-12-11] MEDS: ASPirin 81 mg TAB PO SCH (09:08)
[2019-12-11] MEDS: ENALAPRIL MALEATE 2.5 MG TAB PO SCH ×2 (09:09→21:46)
[2019-12-11] MEDS: CARVEDILOL 12.5 MG TAB PO SCH ×2 (09:09→21:45)
[2019-12-11] MEDS: DIGOXIN 0.25 MG TAB PO SCH (09:10)
[2019-12-11 13:00] VITALS: BP 110/71
[2019-12-11 17:00] VITALS: BP 130/79
[2019-12-11 20:00] VITALS: BP 130/79
[2019-12-11] MEDS: ATORVASTATIN 20 MG TAB PO SCH (21:44)
--- NOTE | 2019-12-11 21:47 | NUR ---
BECAUSE PT IS ON A DOBUTAMINE GTT TO KEEP BLOOD PRESSURE UP; VASOTEC WAS HELD AT THIS TIME.
[2019-12-11 22:00] VITALS: BP 121/88
[2019-12-12] MEDS: DOBUTamine 1000MCG/ML 250 ML IV SCH ×4 (01:41→21:47)
[2019-12-12 06:00] VITALS: BP 103/71
[2019-12-12] MEDS: FUROSEMIDE 100 MG/10ML VIAL IV SCH ×2 (06:00→17:52)
[2019-12-12] MEDS: LEVOTHYROXINE SODIUM 100 MCG TAB PO SCH (06:43)
[2019-12-12 09:00] VITALS: BP 131/73
[2019-12-12] MEDS: LACTULOSE 20Gm/30ML SOLN PO SCH (09:27)
[2019-12-12] MEDS: DIGOXIN 0.25 MG TAB PO SCH (09:27)
[2019-12-12] MEDS: FAMOTIDINE 20 MG TAB PO SCH ×2 (09:27→21:46)
[2019-12-12] MEDS: ASPirin 81 mg TAB PO SCH (09:28)
[2019-12-12] MEDS: CARVEDILOL 12.5 MG TAB PO SCH ×2 (09:28→21:44)
[2019-12-12] MEDS: ENALAPRIL MALEATE 2.5 MG TAB PO SCH ×2 (09:29→21:46)
[2019-12-12 13:00] VITALS: BP 102/68
--- NOTE | 2019-12-12 13:15 | NUR ---
MD ROUNDS DR Power DOOLEY AT BEDSIDE DISCUSSING POC WITH PATIENT. NO NEW ORDERS RECEIVED. WILL CONTINUE TO MONITOR
[2019-12-12 17:00] VITALS: BP 108/62
[2019-12-12 20:05] VITALS: BP 120/73
--- NOTE | 2019-12-12 20:05 | NUR ---
Opening Shift Note Assumed care of patient, awake and alert. No S/S of distress/SOB or pain. Patient is on 2 liters of oxygen via nasal cannula. Respirations even and unlabored. Instructed on POC and to call for assist PRN, will continue to monitor for changes Q1hr and PRN.
[2019-12-12] MEDS: ATORVASTATIN 20 MG TAB PO SCH (21:46)
[2019-12-12 21:58] VITALS: BP 120/73
[2019-12-13] MEDS: DOBUTamine 1000MCG/ML 250 ML IV SCH (04:51)
[2019-12-13 05:41] VITALS: BP 112/70
[2019-12-13] MEDS: FUROSEMIDE 100 MG/10ML VIAL IV SCH (06:17)
[2019-12-13] MEDS: LEVOTHYROXINE SODIUM 100 MCG TAB PO SCH (06:18)
--- NOTE | 2019-12-13 07:00 | NUR ---
CLOSING NOTE No S/S of distress/SOB or pain. Patient is on 2 liters of oxygen via nasal cannula. Respirations even and unlabored.
--- NOTE | 2019-12-13 07:20 | NUR ---
OPENING SHIFT NOTE ASSUMED CARE OF PATIENT FROM BINDER SORTER RN LAVERN. PATIENT IS AWAKE AND ALERT X4. PATIENT HAS NO S/S OF DISTRESS/SOB OR PAIN. INSTRUCTED PATIENT ON POC, PATIENT VERBALIZED UNDERSTANDING. BED IS IN LOWEST POSITION WITH SIDE RAILS RAISED X2, BED WHEELS LOCKED, AND CALL LIGHT IS WITHIN REACH. PATIENT IS ADAMANT ABOUT LEAVING. INFORMED HIM DOCTORS START ROUNDING AFTER 1000. PATIENT VERBALIZED UNDERSTANDING.
--- NOTE | 2019-12-13 08:26 | NUR ---
AMA Note LAISHA ORDAZ states they want to leave the hospital Against Medical Advice (AMA). Patient encouraged to stay for further treatment/stabilization. MD JOHNY will be notified of patient's wishes. Patient advised of the risks and benefits of leaving AMA. Patient verbalized understanding. Patient encouraged to return to the ER if symptoms do not improve or worsen.
== END 2019-12-13 08:30 | disposition left against medical advice (07) | DRG 194 ==
LOC: EDBD 02:09 → ER 02:11 → TELE 02:12 → TELE-WESTW 06:15
PROVIDERS: ADMIT Nurse Practitioner; ATTEND Internal Medicine Nephrology
DX: I11.0 Hypertensive heart disease with heart failure (principal); I42.7 Cardiomyopathy due to drug and external agent; F03.90 Unspecified dementia, unspecified severity, without behavioral disturbance, psychotic disturbance, mood disturbance, and anxiety; I50.43 Acute on chronic combined systolic (congestive) and diastolic (congestive) heart failure; K72.90 Hepatic failure, unspecified without coma; K76.0 Fatty (change of) liver, not elsewhere classified; N28.9 Disorder of kidney and ureter, unspecified; R79.89 Other specified abnormal findings of blood chemistry; F15.10 Other stimulant abuse, uncomplicated; Z91.19 Patient's noncompliance with other medical treatment and regimen; E66.9 Obesity, unspecified; I08.0 Rheumatic disorders of both mitral and aortic valves; I25.10 Atherosclerotic heart disease of native coronary artery without angina pectoris; I25.2 Old myocardial infarction; I70.0 Atherosclerosis of aorta; J44.9 Chronic obstructive pulmonary disease, unspecified; Z86.73 Personal history of transient ischemic attack (TIA), and cerebral infarction without residual deficits; Z95.0 Presence of cardiac pacemaker; Z88.0 Allergy status to penicillin; Z79.899 Other long term (current) drug therapy
CPT/HCPCS: 36415; 71045; 80048; 80053; 80162; 80307; 81001; 82140; 82962; 83605; 83880; 84484; 85025; 85610; 85730; 87081; 93005; 93925; G0378

== ENCOUNTER 2020-05-18 03:10 | Inpatient (IN) | payer MEDICAID ==
[~2020-05-18] VITALS: Ht 177.8 cm; Wt 107.8 kg
[2020-05-18 05:32] LABS: Albumin 3.7 g/dL (3.4-5.0); Basophils # (auto) 0.1 10 ^3/uL (0-0.2); Basophils % (auto) 1.1 % (0.0-2.0); Bilirubin, Total 0.6 mg/dL (0.2-1.0); Calcium 8.6 mg/dL (8.5-10.1); Eosinophils # (auto) 0.2 10 ^3/uL (0-0.8); Eosinophils % (auto) 1.5 % (0.0-7.0); Hematocrit 40.8 % (41.0-53.0); Hemoglobin 14.1 g/dL (13.5-17.5); Lymphocytes % (auto) 15.6 % (10.0-50.0); Mean Corpuscular Hemoglobin 31.7 pg (28.0-32.0); Mean Corpuscular Hgb Conc. 34.5 g/dL (32.0-36.0); Mean Corpuscular Volume 91.8 fL (80.0-100.0); Monocytes # (auto) 1.1 10 ^3/uL (0-1.3); Monocytes % (auto) 9.2 % (0.0-12.0); Neutrophils # (auto) 9.1 10 ^3/uL (1.6-8.6); Neutrophils % (auto) 72.6 % (37.0-80.0); Nucleated Red Blood Cells % 0.1 %; Platelet Count (auto) 399 10^3/uL (140-450); Red Blood Cells 4.44 10^6/uL (4.5-5.90); Red Cell Distribution Width 15.7 % (11.8-14.3); Total Protein 7.3 g/dL (6.4-8.2); White Blood Cell 12.5 10^3/uL (4.4-10.8)
[2020-05-18 05:32] LABS: Alcohol, Urine < 3.0 mg/dL (0-10); Amphetamine Screen, Urine NEGATIVE (NEGATIVE); Barbiturate Scree,Urine NEGATIVE (NEGATIVE); Benzodiazephine Screen, Urine NEGATIVE (NEGATIVE); Cannabinoid Screen, Urine NEGATIVE (NEGATIVE); Cocaine Screen, Urine NEGATIVE (NEGATIVE); Opiate Scree,Urine NEGATIVE (NEGATIVE); Phencyclidine Screen, Urine NEGATIVE (NEGATIVE)
[2020-05-18 05:50] LABS: Partial Thromboplastin Time 28.9 sec (23.0-31.2)
[2020-05-18 06:35] LABS: Urine Bacteria NONE SEEN /hpf (None Seen); Urine Blood Negative /uL (Negative); Urine Specific Gravity 1.013 (1.001-1.035); Urine WBC 1 /hpf (0 - 3)
[2020-05-18] MEDS ORDERED: MORPHINE SULF INJ 2 MG/ML SYRINGE 1ML IV PRN (07:30)
[2020-05-18] MEDS ORDERED: NITROGLYCERIN 0.4 MG SL TAB SL PRN (07:30)
[2020-05-18] MEDS ORDERED: ACETAMINOPHEN 325 MG TAB PO PRN (07:30)
[2020-05-18] MEDS ORDERED: TEMAZEPAM 15 MG CAP PO PRN (07:30)
[2020-05-18] MEDS: FAMOTIDINE 20 MG TAB PO SCH ×2 (09:23→22:03)
[2020-05-18] MEDS: FUROSEMIDE 40 MG TAB PO SCH (09:23)
[2020-05-18] MEDS: ENALAPRIL MALEATE 2.5 MG TAB PO SCH ×2 (09:24→22:02)
[2020-05-18] MEDS: DIGOXIN 0.25 MG TAB PO SCH (09:24)
[2020-05-18] MEDS: APIXABAN 5 MG TAB PO SCH ×2 (09:24→22:03)
[2020-05-18] MEDS: CARVEDILOL 12.5 MG TAB PO SCH ×2 (09:25→22:02)
[2020-05-18] MEDS ORDERED: ASPirin 81 mg TAB PO SCH (10:00)
--- NOTE | 2020-05-18 10:45 | NUR ---
Telemetry admit from LAISHA BOURGEOIS admitted to Telemetry unit after SBAR received. Patient oriented to Elsa Alexander RN primary RN, unit, room, bed, and unit policies regarding patient care and visiting hours. Patient now on continuous telemetry monitoring, tele box #89 and telemetry reading on arrival to unit is SRS. Encouraged to call if they need something. All questions and concerns addressed, patient verbalized understanding. Patient is alert and oriented x4. Ambulates independently with steady gait. Respirations are even and unlabored. No reports of pain. Bed is low locked with 2x side rails up. Call light is within reach. Will continue to monitor Q1hr and PRN.
[2020-05-18] MEDS ORDERED: FURO1TAB32 PO (10:59)
--- NOTE | 2020-05-18 11:27 | NUR ---
MRSA SWAB SENT TO LAB.
--- NOTE | 2020-05-18 12:45 | NUR ---
Dr. Flores at bedside Discussing POC with patient. Now new orders received.
[2020-05-18 13:00] VITALS: BP 108/76
[2020-05-18] MEDS ORDERED: ASPI-543 PO (14:38)
[2020-05-18] MEDS ORDERED: AMIO200T33 PO (14:38)
[2020-05-18] MEDS ORDERED: CARV3.1240 PO (14:38)
[2020-05-18] MEDS ORDERED: LEV50T PO (14:38)
[2020-05-18 16:57] VITALS: BP 127/81
[2020-05-18] MEDS ORDERED: AMIODARONE HCL 200 MG TAB PO ONE (18:00)
[2020-05-18 21:41] VITALS: BP 112/64
[2020-05-18] MEDS ORDERED: ATORVASTATIN 20 MG TAB PO SCH ×2 (22:00)
[2020-05-18] MEDS: DOXYCYCLINE 100 MG TAB/CAP PO SCH (22:03)
[2020-05-19 05:00] VITALS: BP 106/64
[2020-05-19 06:13] LABS: Basophils # (auto) 0.1 10 ^3/uL (0-0.2); Basophils % (auto) 0.9 % (0.0-2.0); Eosinophils # (auto) 0.2 10 ^3/uL (0-0.8); Eosinophils % (auto) 2.5 % (0.0-7.0); Hematocrit 38.7 % (41.0-53.0); Hemoglobin 13.6 g/dL (13.5-17.5); Lymphocytes # (auto) 1.7 10 ^3/uL (0.4-5.4); Lymphocytes % (auto) 16.9 % (10.0-50.0); Mean Corpuscular Hemoglobin 32.3 pg (28.0-32.0); Mean Corpuscular Hgb Conc. 35.1 g/dL (32.0-36.0); Monocytes # (auto) 1.1 10 ^3/uL (0-1.3); Monocytes % (auto) 10.7 % (0.0-12.0); Neutrophils # (auto) 6.8 10 ^3/uL (1.6-8.6); Platelet Count (auto) 355 10^3/uL (140-450); Red Blood Cells 4.21 10^6/uL (4.5-5.90); Red Cell Distribution Width 14.9 % (11.8-14.3); White Blood Cell 9.9 10^3/uL (4.4-10.8)
[2020-05-19 06:25] LABS: Potassium 4.1 mmol/L (3.5-5.1)
[2020-05-19 06:41] LABS: BUN/Creatinine Ratio 21.9; Calcium 9.1 mg/dL (8.5-10.1)
[2020-05-19] MEDS ORDERED: LEVOTHYROXINE SODIUM 100 MCG TAB PO SCH (07:00)
--- NOTE | 2020-05-19 07:30 | NUR ---
Opening Shift Note Assumed care of patient, who is alert and oriented x4. Respirations are even and unlabored. No S/S of distress/SOB or pain. Bed is low, locked with 2x side rails up. Call light is within reach. Instructed on POC and to call for assist PRN, will continue to monitor for changes Q1hr and PRN.
[2020-05-19 09:00] VITALS: BP 139/86
[2020-05-19] MEDS: FUROSEMIDE 40 MG TAB PO SCH (09:26)
[2020-05-19] MEDS: DOXYCYCLINE 100 MG TAB/CAP PO SCH (09:26)
[2020-05-19] MEDS: FAMOTIDINE 20 MG TAB PO SCH (09:26)
[2020-05-19] MEDS: CARVEDILOL 12.5 MG TAB PO SCH (09:27)
[2020-05-19] MEDS: ENALAPRIL MALEATE 2.5 MG TAB PO SCH (09:27)
[2020-05-19] MEDS: DIGOXIN 0.25 MG TAB PO SCH (09:30)
[2020-05-19] MEDS: APIXABAN 5 MG TAB PO SCH (09:30)
[2020-05-19] MEDS ORDERED: SPIRONOLACTONE 25 MG TAB PO SCH (10:00)
[2020-05-19] MEDS ORDERED: ASPirin 81 mg TAB PO SCH (10:00)
[2020-05-19] MEDS ORDERED: AMIODARONE HCL 200 MG TAB PO SCH (10:00)
--- NOTE | 2020-05-19 10:25 | NUR ---
therapeutic massage technician at bedside
[2020-05-19] MEDS ORDERED: OPTISON 3ml Vial for INJ IV ONE (11:11)
--- NOTE | 2020-05-19 11:24 | NUR ---
Dr. Contreras at bedside Discussing POC with patient. Patient may be discharged today if cleared by cardiology.
--- NOTE | 2020-05-19 11:30 | NUR ---
Cleared for discharge Spoke to Lucian Garcia. Patient is cleared for discharge from cardiology standpoint. Hospitalist Ben riley. Per MD, she will input orders for discharge.
--- NOTE | 2020-05-19 12:48 | NUR ---
Social service consult Patient has a SS consult for high re-admission score. Spoke to Kacie Turk from . No orders will be placed for this patient and this nurse may proceed with discharge. Will carry out orders. l
[2020-05-19 13:00] VITALS: BP_SYST 102; BP_SYST 186; BP_DIAS 64; BP_DIAS 90
[2020-05-19 13:40] VITALS: BP 113/78
--- NOTE | 2020-05-19 15:01 | NUR ---
Discharge instructions given as ordered. Encourage to follow up with PMD as instructed. All questions and concerns addressed. Patient verbalized understanding. IV removed with catheter intact, pressure dressing applied. Telemetry unit returned to ICU. Patient ambulated with all personal belongings. No distress noted at time of departure.
== END 2020-05-19 14:45 | disposition home or self-care (01) | DRG 190 ==
LOC: EDBD 03:10 → ER 03:14 → TELE 03:15 → TELE-WESTW 10:35
PROVIDERS: ADMIT Nurse Practitioner; ATTEND Internal Medicine Pulmonary Disease
PROC: 4B02XTZ Measurement of Cardiac Defibrillator, External Approach (ICD-10-PCS; principal; 2020-05-19)
DX: I21.4 Non-ST elevation (NSTEMI) myocardial infarction (principal); I50.42 Chronic combined systolic (congestive) and diastolic (congestive) heart failure; I27.20 Pulmonary hypertension, unspecified; R65.10 Systemic inflammatory response syndrome (SIRS) of non-infectious origin without acute organ dysfunction; I42.9 Cardiomyopathy, unspecified; I11.0 Hypertensive heart disease with heart failure; I25.10 Atherosclerotic heart disease of native coronary artery without angina pectoris; E66.9 Obesity, unspecified; Z68.34 Body mass index [BMI] 34.0-34.9, adult; E78.5 Hyperlipidemia, unspecified; F03.90 Unspecified dementia, unspecified severity, without behavioral disturbance, psychotic disturbance, mood disturbance, and anxiety; F15.10 Other stimulant abuse, uncomplicated; E07.9 Disorder of thyroid, unspecified; J44.9 Chronic obstructive pulmonary disease, unspecified; Z86.73 Personal history of transient ischemic attack (TIA), and cerebral infarction without residual deficits; Z91.19 Patient's noncompliance with other medical treatment and regimen; Z95.810 Presence of automatic (implantable) cardiac defibrillator; Z79.899 Other long term (current) drug therapy; Z88.0 Allergy status to penicillin
CPT/HCPCS: 36415; 71045; 80048; 80053; 80162; 80307; 80320; 81001; 83605; 83880; 84484; 85025; 85610; 85730; 87040; 87081; 93005; 93306; G0378; Q9956

== ENCOUNTER 2020-11-30 15:18 | Inpatient (IN) | payer MEDICAID ==
[~2020-11-30] VITALS: Ht 177.8 cm; Wt 119.7 kg
[~2020-11-30 15:18] MED LIST changes: +AMIO200T33 PO; +ASPI-543 PO; -CARV12.544 PO; +CARV3.1240 PO; -FURO40TA4 PO; -LEV25T PO; +LEV50T PO
[2020-11-30] MEDS ORDERED: FUROSEMIDE 40 MG/4 ML VIAL IV ONE (15:30)
[2020-11-30 15:59] LABS: Basophils # (auto) 0.1 10 ^3/uL (0-0.2); Basophils % (auto) 0.6 % (0.0-2.0); Eosinophils # (auto) 0.1 10 ^3/uL (0-0.8); Hematocrit 35.7 % (41.0-53.0); Hemoglobin 11.9 g/dL (13.5-17.5); Lymphocytes # (auto) 1.2 10 ^3/uL (0.4-5.4); Lymphocytes % (auto) 13.3 % (10.0-50.0); Mean Corpuscular Hemoglobin 30.9 pg (28.0-32.0); Mean Corpuscular Hgb Conc. 33.3 g/dL (32.0-36.0); Mean Corpuscular Volume 92.9 fL (80.0-100.0); Monocytes # (auto) 0.7 10 ^3/uL (0-1.3); Monocytes % (auto) 7.7 % (0.0-12.0); Neutrophils % (auto) 77.4 % (37.0-80.0); Nucleated Red Blood Cells % 0.1 %; Platelet Count (auto) 283 10^3/uL (140-450); Red Blood Cells 3.84 10^6/uL (4.5-5.90); Red Cell Distribution Width 15.9 % (11.8-14.3)
[2020-11-30 16:23] LABS: Albumin 3.4 g/dL (3.4-5.0); Calcium 7.2 mg/dL (8.5-10.1); Potassium 3.6 mmol/L (3.5-5.1)
[2020-11-30 16:25] LABS: BUN/Creatinine Ratio 16.2
[2020-11-30 16:30] LABS: Bilirubin, Total 1.6 mg/dL (0.2-1.0); Total Protein 6.7 g/dL (6.4-8.2)
[2020-11-30] MEDS ORDERED: ALBUTEROL SULF 2.5 MG/0.5ML(0.5%) NEB SOLN NEB PRN (17:45)
[2020-11-30] MEDS ORDERED: IPRATROPIUM BROM 0.5 MG/2.5ML INH SOL NEB PRN (17:45)
[2020-11-30] MEDS ORDERED: ACETAMINOPHEN 500 MG TAB PO PRN (17:45)
[2020-11-30] MEDS ORDERED: HYDROcodone-ACET 5/325MG TAB PO PRN (17:45)
[2020-11-30] MEDS ORDERED: ONDANSETRON HCL 4 MG/2 ML VIAL IV PRN (17:45)
[2020-11-30] MEDS ORDERED: NITROGLYCERIN 0.4 MG SL TAB SL PRN (17:45)
[2020-11-30] MEDS ORDERED: MORPHINE SULF INJ 2 MG/ML SYRINGE 1ML IV PRN ×2 (17:45)
[2020-11-30 18:11] VITALS: BP 112/63
[2020-11-30] MEDS: busPIRone HCL 10 MG TAB PO SCH (21:04)
[2020-11-30] MEDS: APIXABAN 5 MG TAB PO SCH (21:06)
[2020-11-30] MEDS: CARVEDILOL 3.125 MG TAB PO SCH (21:06)
[2020-11-30] MEDS: ATORVASTATIN 20 MG TAB PO SCH (21:07)
[2020-11-30] MEDS: ENALAPRIL MALEATE 2.5 MG TAB PO SCH (21:08)
[2020-11-30 22:00] VITALS: BP 117/75
[2020-12-01 05:00] VITALS: BP 122/73
[2020-12-01 06:02] LABS: Basophils # (auto) 0.1 10 ^3/uL (0-0.2); Basophils % (auto) 0.6 % (0.0-2.0); Eosinophils # (auto) 0.1 10 ^3/uL (0-0.8); Eosinophils % (auto) 1.3 % (0.0-7.0); Hematocrit 37.3 % (41.0-53.0); Hemoglobin 12.4 g/dL (13.5-17.5); Lymphocytes # (auto) 1.2 10 ^3/uL (0.4-5.4); Lymphocytes % (auto) 13.6 % (10.0-50.0); Mean Corpuscular Hemoglobin 30.8 pg (28.0-32.0); Mean Corpuscular Hgb Conc. 33.2 g/dL (32.0-36.0); Mean Corpuscular Volume 92.8 fL (80.0-100.0); Monocytes # (auto) 0.5 10 ^3/uL (0-1.3); Neutrophils # (auto) 6.9 10 ^3/uL (1.6-8.6); Neutrophils % (auto) 78.5 % (37.0-80.0); Nucleated Red Blood Cells % 0.2 %; Platelet Count (auto) 274 10^3/uL (140-450); Red Blood Cells 4.02 10^6/uL (4.5-5.90); Red Cell Distribution Width 15.9 % (11.8-14.3); White Blood Cell 8.8 10^3/uL (4.4-10.8)
[2020-12-01] MEDS: FUROSEMIDE 20 MG/2 ML VIAL IV SCH ×2 (06:18→17:44)
[2020-12-01 06:19] LABS: Potassium 3.8 mmol/L (3.5-5.1)
[2020-12-01] MEDS: LEVOTHYROXINE SODIUM 50 MCG TAB PO SCH (06:19)
[2020-12-01 09:00] VITALS: BP 106/69
[2020-12-01] MEDS: APIXABAN 5 MG TAB PO SCH ×2 (09:48→21:27)
[2020-12-01] MEDS: busPIRone HCL 10 MG TAB PO SCH ×2 (09:50→21:26)
[2020-12-01] MEDS: ENALAPRIL MALEATE 2.5 MG TAB PO SCH ×2 (09:50→21:28)
[2020-12-01] MEDS: CARVEDILOL 3.125 MG TAB PO SCH ×2 (09:51→21:27)
[2020-12-01] MEDS ORDERED: Escitalopram Oxalate (Lexapro) 10 MG TABLET PO SCH (10:00)
[2020-12-01] MEDS ORDERED: AMIODARONE HCL 200 MG TAB PO SCH (10:00)
[2020-12-01] MEDS ORDERED: FAMOTIDINE 20 MG TAB PO SCH (10:00)
[2020-12-01 13:01] VITALS: BP 107/69
[2020-12-01 17:26] VITALS: BP 93/35
[2020-12-01] MEDS: ATORVASTATIN 20 MG TAB PO SCH (21:28)
[2020-12-01 22:00] VITALS: BP 116/81
[2020-12-01 22:43] LABS: Urine WBC None Seen /hpf (0 - 3)
[2020-12-01 22:59] LABS: Urine Bacteria FEW /hpf (None Seen); Urine Blood Negative /uL (Negative); Urine Specific Gravity 1.014 (1.001-1.035)
[2020-12-01 23:06] LABS: Alcohol, Urine < 3.0 mg/dL (0-10); Amphetamine Screen, Urine POSITIVE (NEGATIVE); Barbiturate Scree,Urine NEGATIVE (NEGATIVE); Benzodiazephine Screen, Urine NEGATIVE (NEGATIVE); Cannabinoid Screen, Urine NEGATIVE (NEGATIVE); Cocaine Screen, Urine NEGATIVE (NEGATIVE); Phencyclidine Screen, Urine NEGATIVE (NEGATIVE)
[2020-12-01 23:14] LABS: Opiate Scree,Urine NEGATIVE (NEGATIVE)
[2020-12-02 05:00] VITALS: BP 102/61
[2020-12-02] MEDS: LEVOTHYROXINE SODIUM 50 MCG TAB PO SCH (06:10)
[2020-12-02] MEDS: FUROSEMIDE 20 MG/2 ML VIAL IV SCH (06:10)
[2020-12-02 09:00] VITALS: BP 109/67
== END 2020-12-02 09:00 | disposition left against medical advice (07) | DRG 194 ==
LOC: EDBD 15:18 → EDUNIT# 15:18 → ER 15:18 → TELE 17:37 → TELE-WESTW 19:55
PROVIDERS: ADMIT Nurse Practitioner Acute Care; ATTEND Family Medicine
DX: I11.0 Hypertensive heart disease with heart failure (principal); J96.21 Acute and chronic respiratory failure with hypoxia; I42.0 Dilated cardiomyopathy; I50.43 Acute on chronic combined systolic (congestive) and diastolic (congestive) heart failure; F03.90 Unspecified dementia, unspecified severity, without behavioral disturbance, psychotic disturbance, mood disturbance, and anxiety; J44.1 Chronic obstructive pulmonary disease with (acute) exacerbation; D63.8 Anemia in other chronic diseases classified elsewhere; E78.00 Pure hypercholesterolemia, unspecified; E78.5 Hyperlipidemia, unspecified; Z20.822 Contact with and (suspected) exposure to COVID-19; E03.9 Hypothyroidism, unspecified; F15.10 Other stimulant abuse, uncomplicated; I25.10 Atherosclerotic heart disease of native coronary artery without angina pectoris; I25.2 Old myocardial infarction; Z79.01 Long term (current) use of anticoagulants; Z86.73 Personal history of transient ischemic attack (TIA), and cerebral infarction without residual deficits; Z95.810 Presence of automatic (implantable) cardiac defibrillator; Z88.0 Allergy status to penicillin; Z53.29 Procedure and treatment not carried out because of patient's decision for other reasons
CPT/HCPCS: 36415; 71045; 80048; 80053; 80307; 81001; 83880; 84484; 85025; 85379; 86141; 87426; 93005; 96374; G0378

== ENCOUNTER 2020-12-09 23:45 | Inpatient (IN) | payer MEDICAID ==
[~2020-12-09] VITALS: Ht 188 cm; Wt 111.7 kg
[~2020-12-09 23:45] MED LIST changes: -APIX5TAB OR; +APIX5TAB PO
[2020-12-10] MEDS ORDERED: FUROSEMIDE 20 MG/2 ML VIAL IV ONE (01:00)
[2020-12-10 01:09] LABS: Basophils # (auto) 0.1 10 ^3/uL (0-0.2); Basophils % (auto) 0.7 % (0.0-2.0); Eosinophils # (auto) 0.1 10 ^3/uL (0-0.8); Eosinophils % (auto) 1.2 % (0.0-7.0); Hematocrit 36.9 % (41.0-53.0); Hemoglobin 12.2 g/dL (13.5-17.5); Lymphocytes # (auto) 1.4 10 ^3/uL (0.4-5.4); Lymphocytes % (auto) 14.9 % (10.0-50.0); Mean Corpuscular Hemoglobin 30.4 pg (28.0-32.0); Mean Corpuscular Hgb Conc. 33.2 g/dL (32.0-36.0); Mean Corpuscular Volume 91.8 fL (80.0-100.0); Monocytes # (auto) 0.6 10 ^3/uL (0-1.3); Monocytes % (auto) 6.5 % (0.0-12.0); Neutrophils # (auto) 7.3 10 ^3/uL (1.6-8.6); Neutrophils % (auto) 76.7 % (37.0-80.0); Nucleated Red Blood Cells % 0.1 %; Platelet Count (auto) 303 10^3/uL (140-450); Red Blood Cells 4.02 10^6/uL (4.5-5.90); White Blood Cell 9.6 10^3/uL (4.4-10.8)
[2020-12-10 01:26] LABS: INR 1.18 (0.9-1.15)
[2020-12-10 01:29] LABS: Albumin 3.5 g/dL (3.4-5.0); BUN/Creatinine Ratio 23.6; Calcium 8.1 mg/dL (8.5-10.1); Magnesium 2.4 mg/dL (1.6-2.6); Potassium 4.1 mmol/L (3.5-5.1)
[2020-12-10 01:35] LABS: Bilirubin, Total 1.4 mg/dL (0.2-1.0); Total Protein 7.1 g/dL (6.4-8.2)
[2020-12-10] MEDS ORDERED: IOHEXOL 350 MG/ML 100ML IJ ONE (03:13)
[2020-12-10] MEDS ORDERED: HYDROcodone-ACET 5/325MG TAB PO PRN (03:15)
[2020-12-10] MEDS ORDERED: NITROGLYCERIN 0.4 MG SL TAB SL PRN (03:15)
[2020-12-10] MEDS ORDERED: DOCUSATE SOD 100 MG CAP PO PRN (03:15)
[2020-12-10] MEDS ORDERED: ONDANSETRON HCL 4 MG/2 ML VIAL IV PRN (03:15)
[2020-12-10] MEDS ORDERED: MORPHINE SULF INJ 2 MG/ML SYRINGE 1ML IV PRN (03:15)
[2020-12-10] MEDS ORDERED: ACETAMINOPHEN 325 MG TAB PO PRN (03:15)
[2020-12-10] MEDS ORDERED: MORPHINE SULFATE 4 MG/ML SYR/VIAL IV PRN (03:15)
[2020-12-10 04:59] LABS: Alcohol, Urine < 3.0 mg/dL (0-10); Amphetamine Screen, Urine POSITIVE (NEGATIVE); Barbiturate Scree,Urine NEGATIVE (NEGATIVE); Benzodiazephine Screen, Urine NEGATIVE (NEGATIVE); Cannabinoid Screen, Urine NEGATIVE (NEGATIVE); Cocaine Screen, Urine NEGATIVE (NEGATIVE); Opiate Scree,Urine NEGATIVE (NEGATIVE); Phencyclidine Screen, Urine NEGATIVE (NEGATIVE)
[2020-12-10] MEDS: LEVOTHYROXINE SODIUM 25 MCG TAB PO SCH (07:03)
[2020-12-10] MEDS ORDERED: FUROSEMIDE 40 MG/4 ML VIAL IV SCH (10:00)
[2020-12-10] MEDS: CARVEDILOL 3.125 MG TAB PO SCH ×2 (10:25→22:22)
[2020-12-10] MEDS: ZINC SULFATE 220mg CAP or TAB PO SCH (10:25)
[2020-12-10] MEDS: ASCORBIC ACID 500 MG TAB PO SCH ×2 (10:25→22:24)
[2020-12-10] MEDS: HEPARIN SODIUM (PORCINE) 5000 UNITS/ML 1ML VIAL SC SCH ×2 (10:25→22:24)
[2020-12-10] MEDS: FAMOTIDINE (10MG/ML) 2ML VL IV SCH ×2 (10:25→22:23)
[2020-12-10] MEDS: MULTIPLE VITAMIN TAB PO SCH (10:25)
[2020-12-10] MEDS: ASPirin 81 mg TAB PO SCH (10:25)
[2020-12-10] MEDS ORDERED: FURO80TA3 PO (12:27)
[2020-12-10] MEDS ORDERED: SPIR25TA8 PO (12:27)
[2020-12-10] MEDS ORDERED: ESCI-28 PO (12:27)
[2020-12-10] MEDS ORDERED: POTA10TA32 PO (12:27)
[2020-12-10] MEDS ORDERED: LEVO75TA6 PO (12:27)
[2020-12-10] MEDS ORDERED: CARV6.2551 PO (12:27)
[2020-12-10 13:08] VITALS: BP 120/66
[2020-12-10 17:00] VITALS: BP 117/77
[2020-12-10 21:46] VITALS: BP 117/75
[2020-12-10] MEDS: FUROSEMIDE 40 MG/4 ML VIAL IV SCH (22:22)
[2020-12-10] MEDS: CIPROFLOXACIN HYDROCHLORIDE 250 MG TAB PO SCH (22:23)
[2020-12-10] MEDS: ATORVASTATIN 20 MG TAB PO SCH (22:23)
[2020-12-11] MEDS: CLINDAMYCIN HCL 150 MG CAP PO SCH ×4 (00:05→19:00)
[2020-12-11 05:02] VITALS: BP 103/75
[2020-12-11] MEDS: FUROSEMIDE 40 MG/4 ML VIAL IV SCH (05:18)
[2020-12-11] MEDS: SPIRONOLACTONE 25 MG TAB PO SCH ×2 (05:19→19:00)
[2020-12-11 06:18] LABS: Albumin 3.4 g/dL (3.4-5.0); Basophils # (auto) 0.1 10 ^3/uL (0-0.2); Basophils % (auto) 0.8 % (0.0-2.0); Calcium 8.3 mg/dL (8.5-10.1); Eosinophils # (auto) 0.1 10 ^3/uL (0-0.8); Eosinophils % (auto) 1.2 % (0.0-7.0); Hematocrit 36.9 % (41.0-53.0); Hemoglobin 12.3 g/dL (13.5-17.5); Lymphocytes # (auto) 1.3 10 ^3/uL (0.4-5.4); Lymphocytes % (auto) 14.1 % (10.0-50.0); Mean Corpuscular Hemoglobin 30.7 pg (28.0-32.0); Mean Corpuscular Hgb Conc. 33.3 g/dL (32.0-36.0); Mean Corpuscular Volume 92.1 fL (80.0-100.0); Monocytes # (auto) 0.4 10 ^3/uL (0-1.3); Monocytes % (auto) 4.6 % (0.0-12.0); Neutrophils # (auto) 7.3 10 ^3/uL (1.6-8.6); Neutrophils % (auto) 79.3 % (37.0-80.0); Nucleated Red Blood Cells % 0.4 %; Platelet Count (auto) 316 10^3/uL (140-450); Red Blood Cells 4.01 10^6/uL (4.5-5.90); Red Cell Distribution Width 16.2 % (11.8-14.3); White Blood Cell 9.2 10^3/uL (4.4-10.8)
[2020-12-11] MEDS: LEVOTHYROXINE SODIUM 25 MCG TAB PO SCH (06:19)
[2020-12-11 06:21] LABS: BUN/Creatinine Ratio 24.1
[2020-12-11 06:26] LABS: Bilirubin, Total 1.8 mg/dL (0.2-1.0); Total Protein 7.2 g/dL (6.4-8.2)
[2020-12-11 08:30] VITALS: BP 122/91
[2020-12-11 08:38] VITALS: BP 122/91
[2020-12-11] MEDS: FAMOTIDINE (10MG/ML) 2ML VL IV SCH ×2 (10:39→22:21)
[2020-12-11] MEDS: ASPirin 81 mg TAB PO SCH (10:40)
[2020-12-11] MEDS: ASCORBIC ACID 500 MG TAB PO SCH ×2 (10:40→22:22)
[2020-12-11] MEDS: MULTIPLE VITAMIN TAB PO SCH (10:40)
[2020-12-11] MEDS: CARVEDILOL 3.125 MG TAB PO SCH ×2 (10:40→22:22)
[2020-12-11] MEDS: ZINC SULFATE 220mg CAP or TAB PO SCH (10:42)
[2020-12-11] MEDS: CIPROFLOXACIN HYDROCHLORIDE 250 MG TAB PO SCH ×2 (10:52→22:21)
[2020-12-11] MEDS ORDERED: DOBUTamine 1000MCG/ML 250 ML IV SCH ×2 (11:15→19:15)
[2020-12-11 12:36] VITALS: BP 123/94
[2020-12-11] MEDS: HEPARIN SODIUM (PORCINE) 5000 UNITS/ML 1ML VIAL SC SCH ×2 (12:37→22:34)
[2020-12-11] MEDS: FUROSEMIDE INJECTION 100 MG in D5W 5% 100 ML IV SCH (14:11)
[2020-12-11 17:00] VITALS: BP 128/83
[2020-12-11] MEDS: ATORVASTATIN 20 MG TAB PO SCH (22:23)
[2020-12-11] MEDS: DOBUTamine 1000MCG/ML 250 ML IV SCH (22:32)
[2020-12-12] MEDS ORDERED: TEMAZEPAM 15 MG CAP PO ONE (01:00)
[2020-12-12] MEDS: CLINDAMYCIN HCL 150 MG CAP PO SCH ×2 (01:44→06:19)
[2020-12-12] MEDS: DOBUTamine 1000MCG/ML 250 ML IV SCH ×5 (01:56→23:38)
[2020-12-12 05:00] VITALS: BP 103/75
[2020-12-12] MEDS: SPIRONOLACTONE 25 MG TAB PO SCH ×2 (06:20→17:57)
[2020-12-12] MEDS: LEVOTHYROXINE SODIUM 25 MCG TAB PO SCH (06:52)
[2020-12-12 09:00] VITALS: BP 137/90
[2020-12-12] MEDS: ASPirin 81 mg TAB PO SCH (10:16)
[2020-12-12] MEDS: ZINC SULFATE 220mg CAP or TAB PO SCH (10:16)
[2020-12-12] MEDS: FAMOTIDINE (10MG/ML) 2ML VL IV SCH ×2 (10:16→14:53)
[2020-12-12] MEDS: MULTIPLE VITAMIN TAB PO SCH (10:17)
[2020-12-12] MEDS: CIPROFLOXACIN HYDROCHLORIDE 250 MG TAB PO SCH (10:17)
[2020-12-12] MEDS: CARVEDILOL 3.125 MG TAB PO SCH ×2 (10:17→22:03)
[2020-12-12] MEDS: HEPARIN SODIUM (PORCINE) 5000 UNITS/ML 1ML VIAL SC SCH ×2 (10:18→22:04)
[2020-12-12] MEDS: ASCORBIC ACID 500 MG TAB PO SCH ×2 (10:18→22:03)
[2020-12-12 10:48] LABS: Basophils # (auto) 0.1 10 ^3/uL (0-0.2); Basophils % (auto) 0.6 % (0.0-2.0); Eosinophils # (auto) 0.1 10 ^3/uL (0-0.8); Eosinophils % (auto) 0.7 % (0.0-7.0); Hematocrit 37.3 % (41.0-53.0); Hemoglobin 12.4 g/dL (13.5-17.5); Lymphocytes # (auto) 0.9 10 ^3/uL (0.4-5.4); Lymphocytes % (auto) 9.3 % (10.0-50.0); Mean Corpuscular Hemoglobin 30.3 pg (28.0-32.0); Mean Corpuscular Hgb Conc. 33.2 g/dL (32.0-36.0); Mean Corpuscular Volume 91.4 fL (80.0-100.0); Monocytes # (auto) 0.5 10 ^3/uL (0-1.3); Monocytes % (auto) 4.8 % (0.0-12.0); Neutrophils # (auto) 8.3 10 ^3/uL (1.6-8.6); Neutrophils % (auto) 84.6 % (37.0-80.0); Nucleated Red Blood Cells % 0.2 %; Platelet Count (auto) 258 10^3/uL (140-450); Red Blood Cells 4.08 10^6/uL (4.5-5.90); Red Cell Distribution Width 16.1 % (11.8-14.3); White Blood Cell 9.9 10^3/uL (4.4-10.8)
[2020-12-12 11:03] LABS: Potassium 3.6 mmol/L (3.5-5.1)
[2020-12-12 11:11] LABS: Albumin 3.3 g/dL (3.4-5.0); BUN/Creatinine Ratio 27.2; Calcium 8.7 mg/dL (8.5-10.1)
[2020-12-12] MEDS ORDERED: metOLazone 5 MG TAB PO ONE (11:45)
[2020-12-12] MEDS: CEPHALEXIN 250 MG CAP PO SCH ×2 (12:51→17:57)
[2020-12-12 13:00] VITALS: BP 134/92
[2020-12-12] MEDS: FUROSEMIDE INJECTION 100 MG in D5W 5% 100 ML IV SCH (14:12)
[2020-12-12] MEDS: LORazepam 2MG/ML-1ML VIAL IV PRN (14:52)
[2020-12-12 17:00] VITALS: BP 132/88
[2020-12-12 22:00] VITALS: BP 136/78
[2020-12-12] MEDS: ATORVASTATIN 20 MG TAB PO SCH (22:03)
[2020-12-13] MEDS: CEPHALEXIN 250 MG CAP PO SCH ×4 (00:04→18:34)
[2020-12-13 05:16] VITALS: BP 113/61
[2020-12-13] MEDS: SPIRONOLACTONE 25 MG TAB PO SCH ×2 (06:33→18:33)
[2020-12-13] MEDS: LEVOTHYROXINE SODIUM 25 MCG TAB PO SCH (06:33)
[2020-12-13] MEDS: DOBUTamine 1000MCG/ML 250 ML IV SCH ×2 (06:34→15:38)
[2020-12-13 08:07] LABS: Potassium 3.2 mmol/L (3.5-5.1)
[2020-12-13 08:16] LABS: BUN/Creatinine Ratio 25.5; Calcium 9.2 mg/dL (8.5-10.1)
[2020-12-13 08:44] VITALS: BP 130/83
[2020-12-13] MEDS: FAMOTIDINE (10MG/ML) 2ML VL IV SCH (09:13)
[2020-12-13] MEDS: ASPirin 81 mg TAB PO SCH (09:14)
[2020-12-13] MEDS: CARVEDILOL 3.125 MG TAB PO SCH ×2 (09:14→22:34)
[2020-12-13] MEDS: MULTIPLE VITAMIN TAB PO SCH (09:15)
[2020-12-13] MEDS: ASCORBIC ACID 500 MG TAB PO SCH (09:15)
[2020-12-13] MEDS: HEPARIN SODIUM (PORCINE) 5000 UNITS/ML 1ML VIAL SC SCH ×2 (09:16→22:34)
[2020-12-13] MEDS ORDERED: metOLazone 5 MG TAB PO SCH (10:00)
[2020-12-13] MEDS ORDERED: POTASSIUM CHL 20 Meq TABLET PO ONE (10:15)
[2020-12-13] MEDS: LORazepam 2MG/ML-1ML VIAL IV PRN (11:07)
[2020-12-13 12:45] VITALS: BP 123/74
[2020-12-13] MEDS ORDERED: FUROSEMIDE INJECTION 100 MG in D5W 5% 100 ML IV SCH (14:45)
[2020-12-13] MEDS ORDERED: OMEP-263 PO (15:12)
[2020-12-13] MEDS ORDERED: CARV6.2551 PO (15:12)
[2020-12-13] MEDS ORDERED: LEVO75TA6 PO (15:12)
[2020-12-13 16:55] VITALS: BP 126/79
[2020-12-13 22:00] VITALS: BP 123/70
[2020-12-13] MEDS: ATORVASTATIN 20 MG TAB PO SCH (22:32)
[2020-12-14] MEDS: CEPHALEXIN 250 MG CAP PO SCH ×4 (00:10→17:24)
[2020-12-14] MEDS: DOBUTamine 1000MCG/ML 250 ML IV SCH ×2 (00:15→07:24)
[2020-12-14] MEDS: LORazepam 2MG/ML-1ML VIAL IV PRN ×3 (02:28→14:30)
[2020-12-14 05:19] VITALS: BP 126/82
[2020-12-14] MEDS ORDERED: FUROSEMIDE INJECTION 100 MG in D5W 5% 100 ML IV SCH (06:00)
[2020-12-14] MEDS: SPIRONOLACTONE 25 MG TAB PO SCH ×2 (06:31→17:24)
[2020-12-14] MEDS: LEVOTHYROXINE SODIUM 100 MCG TAB PO SCH (06:32)
[2020-12-14 07:20] LABS: Calcium 9.5 mg/dL (8.5-10.1); Magnesium 2.3 mg/dL (1.6-2.6); Potassium 3.4 mmol/L (3.5-5.1)
[2020-12-14] MEDS: FUROSEMIDE 20 MG/2 ML VIAL IV SCH ×3 (08:00→21:45)
[2020-12-14 08:38] VITALS: BP 119/83
[2020-12-14] MEDS: metOLazone 5 MG TAB PO SCH (09:40)
[2020-12-14] MEDS: HEPARIN SODIUM (PORCINE) 5000 UNITS/ML 1ML VIAL SC SCH ×2 (09:41→21:16)
[2020-12-14] MEDS: MULTIPLE VITAMIN TAB PO SCH (09:42)
[2020-12-14] MEDS: FAMOTIDINE 20 MG TAB PO SCH (09:42)
[2020-12-14] MEDS: CARVEDILOL 3.125 MG TAB PO SCH ×2 (09:43→21:46)
[2020-12-14] MEDS: ASPirin 81 mg TAB PO SCH (09:43)
[2020-12-14] MEDS ORDERED: POTASSIUM CHL 20 Meq TABLET PO ONE (10:30)
[2020-12-14 11:14] LABS: Hepatitis A Ab IgM Negative; Hepatitis B Core IgM Negative
[2020-12-14 11:15] LABS: Hepatitis B Surface Antigen Negative (Negative); Hepatitis C Antibody Negative (Negative)
[2020-12-14 13:00] VITALS: BP 121/83
[2020-12-14 17:00] VITALS: BP 119/87
[2020-12-14] MEDS: ATORVASTATIN 20 MG TAB PO SCH (21:15)
[2020-12-14 22:00] VITALS: BP 126/84
[2020-12-15] MEDS: CEPHALEXIN 250 MG CAP PO SCH ×3 (00:12→11:25)
[2020-12-15] MEDS: LORazepam 2MG/ML-1ML VIAL IV PRN ×2 (01:50→10:00)
[2020-12-15 05:12] VITALS: BP 119/81
[2020-12-15] MEDS: SPIRONOLACTONE 25 MG TAB PO SCH (06:18)
[2020-12-15] MEDS: LEVOTHYROXINE SODIUM 100 MCG TAB PO SCH (06:18)
[2020-12-15] MEDS: FUROSEMIDE 20 MG/2 ML VIAL IV SCH (06:18)
[2020-12-15 08:58] VITALS: BP 125/75
[2020-12-15] MEDS: ASPirin 81 mg TAB PO SCH (10:00)
[2020-12-15] MEDS: CARVEDILOL 3.125 MG TAB PO SCH (10:01)
[2020-12-15] MEDS: FAMOTIDINE 20 MG TAB PO SCH (10:01)
[2020-12-15] MEDS: MULTIPLE VITAMIN TAB PO SCH (10:01)
[2020-12-15] MEDS: HEPARIN SODIUM (PORCINE) 5000 UNITS/ML 1ML VIAL SC SCH (10:02)
[2020-12-15] MEDS: metOLazone 5 MG TAB PO SCH (10:02)
[2020-12-15] MEDS ORDERED: AMIODARONE HCL 200 MG TAB PO ONE (11:15)
[2020-12-15] MEDS ORDERED: POTASSIUM CHL 20 Meq TABLET PO ONE (11:15)
[2020-12-15 11:57] VITALS: BP 125/75
== END 2020-12-15 13:18 | disposition home or self-care (01) | DRG 133 ==
LOC: ER 23:45 → EDBD 23:45 → TELE 12-10 03:16 → TELE-EAST 12-10 10:34
PROVIDERS: ADMIT Nurse Practitioner Family; ATTEND Internal Medicine
DX: J96.20 Acute and chronic respiratory failure, unspecified whether with hypoxia or hypercapnia (principal); I50.43 Acute on chronic combined systolic (congestive) and diastolic (congestive) heart failure; I27.20 Pulmonary hypertension, unspecified; I42.0 Dilated cardiomyopathy; I07.1 Rheumatic tricuspid insufficiency; L03.115 Cellulitis of right lower limb; I11.0 Hypertensive heart disease with heart failure; J44.1 Chronic obstructive pulmonary disease with (acute) exacerbation; R16.0 Hepatomegaly, not elsewhere classified; F03.90 Unspecified dementia, unspecified severity, without behavioral disturbance, psychotic disturbance, mood disturbance, and anxiety; E03.9 Hypothyroidism, unspecified; I25.10 Atherosclerotic heart disease of native coronary artery without angina pectoris; F32.9 Major depressive disorder, single episode, unspecified; E66.9 Obesity, unspecified; F15.10 Other stimulant abuse, uncomplicated; E78.5 Hyperlipidemia, unspecified; L03.116 Cellulitis of left lower limb; I50.82 Biventricular heart failure; K72.90 Hepatic failure, unspecified without coma; Z20.822 Contact with and (suspected) exposure to COVID-19; Z74.01 Bed confinement status; Z86.73 Personal history of transient ischemic attack (TIA), and cerebral infarction without residual deficits; I25.2 Old myocardial infarction; Z68.31 Body mass index [BMI] 31.0-31.9, adult; Z88.0 Allergy status to penicillin; Z95.810 Presence of automatic (implantable) cardiac defibrillator
CPT/HCPCS: 36415; 71275; 80048; 80053; 80074; 80162; 80307; 83735; 83880; 84443; 84484; 85025; 85379; 85610; 85730; 87040; 87081; 87426; 93005; 93306; 93970; 96374; 96375; 99291; G0378; J3490; J7060

== ENCOUNTER 2020-12-19 02:20 | Inpatient (IN) | payer MEDICAID ==
[~2020-12-19] VITALS: Ht 177.8 cm; Wt 108.6 kg
[~2020-12-19 02:20] MED LIST changes: -CARV3.1240 PO; +CARV6.2551 PO; -LEV50T PO; +LEVO75TA6 PO; +OMEP-263 PO; -OMEP20CA74 OR; +SPIR25TA8 PO
[2020-12-19 03:41] LABS: Basophils # (auto) 0.1 10 ^3/uL (0-0.2); Basophils % (auto) 0.4 % (0.0-2.0); Eosinophils # (auto) 0.1 10 ^3/uL (0-0.8); Eosinophils % (auto) 0.5 % (0.0-7.0); Hematocrit 40.8 % (41.0-53.0); Hemoglobin 13.1 g/dL (13.5-17.5); Lymphocytes # (auto) 1.3 10 ^3/uL (0.4-5.4); Lymphocytes % (auto) 9.4 % (10.0-50.0); Mean Corpuscular Hemoglobin 29.2 pg (28.0-32.0); Mean Corpuscular Hgb Conc. 32.2 g/dL (32.0-36.0); Mean Corpuscular Volume 90.5 fL (80.0-100.0); Monocytes # (auto) 0.9 10 ^3/uL (0-1.3); Monocytes % (auto) 6.7 % (0.0-12.0); Neutrophils # (auto) 11.6 10 ^3/uL (1.6-8.6); Nucleated Red Blood Cells % 0.1 %; Platelet Count (auto) 321 10^3/uL (140-450); Red Blood Cells 4.51 10^6/uL (4.5-5.90); Red Cell Distribution Width 16.1 % (11.8-14.3)
[2020-12-19 04:00] LABS: INR 1.06 (0.9-1.15); Partial Thromboplastin Time 28.8 sec (23.0-31.2)
[2020-12-19 04:10] LABS: Albumin 3.6 g/dL (3.4-5.0); BUN/Creatinine Ratio 29.2; Bilirubin, Total 0.8 mg/dL (0.2-1.0); Calcium 8.1 mg/dL (8.5-10.1); Magnesium 2.9 mg/dL (1.6-2.6); Total Protein 7.3 g/dL (6.4-8.2)
[2020-12-19] MEDS ORDERED: FUROSEMIDE 40 MG/4 ML VIAL IV ONE (05:00)
[2020-12-19] MEDS ORDERED: ONDANSETRON HCL 4 MG/2 ML VIAL IV PRN (05:45)
[2020-12-19] MEDS ORDERED: MORPHINE SULF INJ 2 MG/ML SYRINGE 1ML IV PRN (05:45)
[2020-12-19] MEDS ORDERED: NITROGLYCERIN 0.4 MG SL TAB SL PRN (05:45)
[2020-12-19] MEDS: FUROSEMIDE 40 MG/4 ML VIAL IV SCH ×2 (06:16→18:00)
[2020-12-19] MEDS ORDERED: LEVOTHYROXINE SODIUM 25 MCG TAB PO SCH (07:00)
[2020-12-19 09:03] VITALS: BP 119/59
[2020-12-19] MEDS ORDERED: THIAMINE 100mg/ml INJ (200mg/2ml VIAL) IV ONE (11:15)
[2020-12-19] MEDS ORDERED: chlordiazePOXIDE HCL 25 MG CAP PO PRN (11:15)
[2020-12-19] MEDS ORDERED: SPIRONOLACTONE 25 MG TAB PO ONE (11:15)
[2020-12-19] MEDS ORDERED: LORazepam 2MG/ML-1ML VIAL IV PRN (11:15)
[2020-12-19] MEDS: APIXABAN 5 MG TAB PO SCH ×2 (11:18→21:58)
[2020-12-19] MEDS: AMIODARONE HCL 200 MG TAB PO SCH (11:18)
[2020-12-19] MEDS: ASPirin 81 mg TAB PO SCH (11:18)
[2020-12-19] MEDS: CARVEDILOL 3.125 MG TAB PO SCH ×2 (11:18→21:57)
[2020-12-19] MEDS: FAMOTIDINE 20 MG TAB PO SCH ×2 (11:19→21:59)
[2020-12-19] MEDS: ENALAPRIL MALEATE 2.5 MG TAB PO SCH ×2 (11:19→21:58)
[2020-12-19] MEDS: DIGOXIN 0.25 MG TAB PO SCH (11:19)
[2020-12-19 13:00] VITALS: BP 116/70
[2020-12-19 17:00] VITALS: BP 86/46
[2020-12-19] MEDS ORDERED: ALBUMIN 5% 250 ML IV ONE (21:00)
[2020-12-19] MEDS: ATORVASTATIN 20 MG TAB PO SCH (21:59)
[2020-12-19 22:00] VITALS: BP 93/62
[2020-12-20] MEDS: chlordiazePOXIDE HCL 5 MG CAP PO SCH ×3 (05:20→19:39)
[2020-12-20 05:52] VITALS: BP 90/66
[2020-12-20] MEDS ORDERED: FUROSEMIDE 40 MG/4 ML VIAL IV SCH (06:00)
[2020-12-20] MEDS: LEVOTHYROXINE SODIUM 100 MCG TAB PO SCH (06:50)
[2020-12-20 06:54] LABS: Basophils # (auto) 0 10 ^3/uL (0-0.2); Basophils % (auto) 0.4 % (0.0-2.0); Eosinophils # (auto) 0.1 10 ^3/uL (0-0.8); Eosinophils % (auto) 0.4 % (0.0-7.0); Hematocrit 38.5 % (41.0-53.0); Lymphocytes # (auto) 1.1 10 ^3/uL (0.4-5.4); Lymphocytes % (auto) 9.1 % (10.0-50.0); Mean Corpuscular Hemoglobin 30.4 pg (28.0-32.0); Mean Corpuscular Hgb Conc. 33.8 g/dL (32.0-36.0); Mean Corpuscular Volume 89.8 fL (80.0-100.0); Monocytes # (auto) 0.6 10 ^3/uL (0-1.3); Neutrophils # (auto) 10.6 10 ^3/uL (1.6-8.6); Neutrophils % (auto) 85.1 % (37.0-80.0); Nucleated Red Blood Cells % 0.1 %; Platelet Count (auto) 327 10^3/uL (140-450); Red Blood Cells 4.28 10^6/uL (4.5-5.90); Red Cell Distribution Width 16.6 % (11.8-14.3); White Blood Cell 12.4 10^3/uL (4.4-10.8)
[2020-12-20] MEDS ORDERED: LEVOTHYROXINE SODIUM 112 MCG TAB PO SCH (07:00)
[2020-12-20 08:23] LABS: Albumin 3.6 g/dL (3.4-5.0); Calcium 8.3 mg/dL (8.5-10.1); Potassium 3.9 mmol/L (3.5-5.1)
[2020-12-20 08:28] LABS: Bilirubin, Total 1.7 mg/dL (0.2-1.0); Total Protein 7.4 g/dL (6.4-8.2)
[2020-12-20 09:00] VITALS: BP 109/67
[2020-12-20] MEDS: THIAMINE 100mg/ml INJ (200mg/2ml VIAL) IV SCH (09:17)
[2020-12-20] MEDS: ASPirin 81 mg TAB PO SCH (09:18)
[2020-12-20] MEDS: AMIODARONE HCL 200 MG TAB PO SCH (09:19)
[2020-12-20] MEDS: APIXABAN 5 MG TAB PO SCH ×2 (09:20→22:22)
[2020-12-20] MEDS: ENALAPRIL MALEATE 2.5 MG TAB PO SCH ×2 (09:20→22:00)
[2020-12-20] MEDS: FAMOTIDINE 20 MG TAB PO SCH ×2 (09:20→22:23)
[2020-12-20] MEDS ORDERED: SPIRONOLACTONE 25 MG TAB PO SCH ×2 (10:00)
[2020-12-20] MEDS: CARVEDILOL 3.125 MG TAB PO SCH ×2 (10:00→22:00)
[2020-12-20] MEDS: DIGOXIN 0.25 MG TAB PO SCH (10:38)
[2020-12-20] MEDS ORDERED: FUROSEMIDE 40 MG/4 ML VIAL IV ONE (10:45)
[2020-12-20] MEDS ORDERED: POTASSIUM CHL 20 Meq TABLET PO ONE (10:45)
[2020-12-20] MEDS ORDERED: metOLazone 5 MG TAB PO ONE (10:45)
[2020-12-20] MEDS: LORazepam 2MG/ML-1ML VIAL IV PRN ×3 (11:00→22:24)
[2020-12-20 13:00] VITALS: BP 116/84
[2020-12-20 16:44] VITALS: BP 103/78
[2020-12-20 20:00] VITALS: BP 97/63
[2020-12-20] MEDS: ATORVASTATIN 20 MG TAB PO SCH (22:23)
[2020-12-20 22:43] VITALS: BP 97/63
[2020-12-21] VITALS (42 sets, daily range): BP systolic 88–132; BP diastolic 32–86
[2020-12-21] MEDS: chlordiazePOXIDE HCL 5 MG CAP PO SCH ×4 (03:20→16:47)
[2020-12-21] MEDS: LORazepam 2MG/ML-1ML VIAL IV PRN ×2 (05:10→20:39)
[2020-12-21] MEDS: LEVOTHYROXINE SODIUM 100 MCG TAB PO SCH (06:19)
[2020-12-21 07:33] LABS: Basophils # (auto) 0.1 10 ^3/uL (0-0.2); Basophils % (auto) 0.6 % (0.0-2.0); Eosinophils # (auto) 0.1 10 ^3/uL (0-0.8); Eosinophils % (auto) 0.6 % (0.0-7.0); Lymphocytes # (auto) 1.7 10 ^3/uL (0.4-5.4); Lymphocytes % (auto) 11.2 % (10.0-50.0); Mean Corpuscular Hemoglobin 29.8 pg (28.0-32.0); Mean Corpuscular Hgb Conc. 32.4 g/dL (32.0-36.0); Mean Corpuscular Volume 91.9 fL (80.0-100.0); Monocytes # (auto) 1.5 10 ^3/uL (0-1.3); Monocytes % (auto) 9.5 % (0.0-12.0); Neutrophils # (auto) 12.1 10 ^3/uL (1.6-8.6); Neutrophils % (auto) 78.1 % (37.0-80.0); Nucleated Red Blood Cells % 0.1 %; Platelet Count (auto) 345 10^3/uL (140-450); Red Blood Cells 4.68 10^6/uL (4.5-5.90); Red Cell Distribution Width 16.6 % (11.8-14.3); White Blood Cell 15.5 10^3/uL (4.4-10.8)
[2020-12-21 07:59] LABS: Calcium 8.7 mg/dL (8.5-10.1); Potassium 4.3 mmol/L (3.5-5.1)
[2020-12-21 08:03] LABS: BUN/Creatinine Ratio 40.2
[2020-12-21] MEDS: THIAMINE 100mg/ml INJ (200mg/2ml VIAL) IV SCH (09:42)
[2020-12-21] MEDS: APIXABAN 5 MG TAB PO SCH ×2 (09:43→21:24)
[2020-12-21] MEDS: ASPirin 81 mg TAB PO SCH (09:43)
[2020-12-21] MEDS: POTASSIUM CHL 20 Meq TABLET PO SCH (09:43)
[2020-12-21] MEDS: DIGOXIN 0.25 MG TAB PO SCH (09:44)
[2020-12-21] MEDS: FAMOTIDINE 20 MG TAB PO SCH ×2 (09:44→21:24)
[2020-12-21] MEDS: FUROSEMIDE 40 MG/4 ML VIAL IV SCH (09:54)
[2020-12-21] MEDS: ENALAPRIL MALEATE 2.5 MG TAB PO SCH ×2 (09:55→21:24)
[2020-12-21] MEDS: AMIODARONE HCL 200 MG TAB PO SCH (09:55)
[2020-12-21] MEDS: CARVEDILOL 3.125 MG TAB PO SCH ×2 (09:56→21:24)
[2020-12-21] MEDS ORDERED: metOLazone 5 MG TAB PO SCH (10:00)
[2020-12-21] MEDS ORDERED: ETOMIDATE (2MG/ML) 20ML VIAL IV ONE (11:24)
[2020-12-21] MEDS ORDERED: SUCCINYLCHOLINE CHLORIDE 20 MG/ML 10ML VIAL IV ONE (11:25)
[2020-12-21] MEDS ORDERED: ROCURONIUM 10MG/ML 10ML VIAL IV ONE (11:25)
[2020-12-21] MEDS: DOBUTamine 1000MCG/ML 250 ML IV SCH (11:49)
[2020-12-21] MEDS: SODIUM CHLOR 0.9% PF (SALINE LOCK) 10ML VIAL/SYR IV SCH (21:23)
[2020-12-21] MEDS: ATORVASTATIN 20 MG TAB PO SCH (21:24)
[2020-12-22] VITALS (61 sets, daily range): BP systolic 74–136; BP diastolic 43–117
[2020-12-22 04:42] LABS: Basophils # (auto) 0.1 10 ^3/uL (0-0.2); Basophils % (auto) 0.8 % (0.0-2.0); Eosinophils # (auto) 0.1 10 ^3/uL (0-0.8); Hematocrit 34.8 % (41.0-53.0); Hemoglobin 11.7 g/dL (13.5-17.5); Lymphocytes # (auto) 1.1 10 ^3/uL (0.4-5.4); Lymphocytes % (auto) 11.1 % (10.0-50.0); Mean Corpuscular Hemoglobin 30.2 pg (28.0-32.0); Mean Corpuscular Hgb Conc. 33.6 g/dL (32.0-36.0); Monocytes # (auto) 0.9 10 ^3/uL (0-1.3); Monocytes % (auto) 8.7 % (0.0-12.0); Neutrophils # (auto) 7.7 10 ^3/uL (1.6-8.6); Neutrophils % (auto) 78.4 % (37.0-80.0); Nucleated Red Blood Cells % 0.1 %; Platelet Count (auto) 271 10^3/uL (140-450); Red Blood Cells 3.87 10^6/uL (4.5-5.90); Red Cell Distribution Width 16.4 % (11.8-14.3); White Blood Cell 9.8 10^3/uL (4.4-10.8)
[2020-12-22] MEDS: LORazepam 2MG/ML-1ML VIAL IV PRN ×3 (04:46→20:40)
[2020-12-22 04:59] LABS: Calcium 8.1 mg/dL (8.5-10.1); Potassium 3.9 mmol/L (3.5-5.1)
[2020-12-22 05:01] LABS: BUN/Creatinine Ratio 31.6
[2020-12-22] MEDS: chlordiazePOXIDE HCL 5 MG CAP PO SCH ×5 (06:00→23:54)
[2020-12-22] MEDS: LEVOTHYROXINE SODIUM 100 MCG TAB PO SCH (06:34)
[2020-12-22] MEDS: FUROSEMIDE 40 MG/4 ML VIAL IV SCH ×2 (10:20→17:50)
[2020-12-22] MEDS: THIAMINE 100mg/ml INJ (200mg/2ml VIAL) IV SCH (10:20)
[2020-12-22] MEDS: SODIUM CHLOR 0.9% PF (SALINE LOCK) 10ML VIAL/SYR IV SCH ×2 (10:21→21:44)
[2020-12-22] MEDS: ASPirin 81 mg TAB PO SCH (10:21)
[2020-12-22] MEDS: AMIODARONE HCL 200 MG TAB PO SCH (10:21)
[2020-12-22] MEDS: CARVEDILOL 3.125 MG TAB PO SCH ×2 (10:21→21:55)
[2020-12-22] MEDS: APIXABAN 5 MG TAB PO SCH ×2 (10:22→21:55)
[2020-12-22] MEDS: DIGOXIN 0.25 MG TAB PO SCH (10:22)
[2020-12-22] MEDS: POTASSIUM CHL 20 Meq TABLET PO SCH (10:22)
[2020-12-22] MEDS: FAMOTIDINE 20 MG TAB PO SCH ×2 (10:22→21:55)
[2020-12-22] MEDS: ENALAPRIL MALEATE 2.5 MG TAB PO SCH ×2 (10:23→21:46)
[2020-12-22] MEDS: DOBUTamine 1000MCG/ML 250 ML IV SCH (13:42)
[2020-12-22] MEDS ORDERED: ALBUMIN 25% 50 ML IV ONE (21:30)
[2020-12-22] MEDS: ATORVASTATIN 20 MG TAB PO SCH (21:55)
[2020-12-22] MEDS: TEMAZEPAM 15 MG CAP PO PRN (23:54)
[2020-12-23] VITALS (7 sets, daily range): BP systolic 91–118; BP diastolic 52–86
[2020-12-23] MEDS: chlordiazePOXIDE HCL 5 MG CAP PO SCH ×4 (06:00→23:30)
[2020-12-23] MEDS: FUROSEMIDE 40 MG/4 ML VIAL IV SCH ×2 (06:00→18:00)
[2020-12-23] MEDS: LEVOTHYROXINE SODIUM 100 MCG TAB PO SCH (06:51)
[2020-12-23 07:31] LABS: Basophils # (auto) 0.1 10 ^3/uL (0-0.2); Basophils % (auto) 0.6 % (0.0-2.0); Eosinophils # (auto) 0.1 10 ^3/uL (0-0.8); Eosinophils % (auto) 0.8 % (0.0-7.0); Hematocrit 33.5 % (41.0-53.0); Hemoglobin 11.5 g/dL (13.5-17.5); Lymphocytes # (auto) 0.9 10 ^3/uL (0.4-5.4); Lymphocytes % (auto) 7.4 % (10.0-50.0); Mean Corpuscular Hemoglobin 30.5 pg (28.0-32.0); Mean Corpuscular Hgb Conc. 34.2 g/dL (32.0-36.0); Mean Corpuscular Volume 89.3 fL (80.0-100.0); Monocytes % (auto) 8.5 % (0.0-12.0); Neutrophils # (auto) 9.6 10 ^3/uL (1.6-8.6); Neutrophils % (auto) 82.7 % (37.0-80.0); Platelet Count (auto) 279 10^3/uL (140-450); Red Blood Cells 3.75 10^6/uL (4.5-5.90); Red Cell Distribution Width 16.2 % (11.8-14.3); White Blood Cell 11.6 10^3/uL (4.4-10.8)
[2020-12-23 07:47] LABS: Potassium 3.1 mmol/L (3.5-5.1)
[2020-12-23 07:55] LABS: Albumin 3.1 g/dL (3.4-5.0); BUN/Creatinine Ratio 34.7; Bilirubin, Total 1.7 mg/dL (0.2-1.0); Calcium 8.3 mg/dL (8.5-10.1); Magnesium 2.7 mg/dL (1.6-2.6); Total Protein 6.4 g/dL (6.4-8.2)
[2020-12-23] MEDS: THIAMINE 100mg/ml INJ (200mg/2ml VIAL) IV SCH (10:50)
[2020-12-23] MEDS: ASPirin 81 mg TAB PO SCH (11:08)
[2020-12-23] MEDS: DIGOXIN 0.25 MG TAB PO SCH (11:09)
[2020-12-23] MEDS: SODIUM CHLOR 0.9% PF (SALINE LOCK) 10ML VIAL/SYR IV SCH ×2 (11:10→22:17)
[2020-12-23] MEDS: AMIODARONE HCL 200 MG TAB PO SCH (11:10)
[2020-12-23] MEDS: CARVEDILOL 3.125 MG TAB PO SCH ×2 (11:10→21:34)
[2020-12-23] MEDS: POTASSIUM CHL 20 Meq TABLET PO SCH (11:11)
[2020-12-23] MEDS: APIXABAN 5 MG TAB PO SCH ×2 (11:11→22:17)
[2020-12-23] MEDS: FAMOTIDINE 20 MG TAB PO SCH ×2 (11:11→22:18)
[2020-12-23] MEDS: ENALAPRIL MALEATE 2.5 MG TAB PO SCH ×2 (11:13→21:34)
[2020-12-23] MEDS: DOBUTamine 1000MCG/ML 250 ML IV SCH (11:23)
[2020-12-23] MEDS ORDERED: POTASSIUM CHL 20 Meq TABLET PO ONE (12:45)
[2020-12-23] MEDS: LORazepam 2MG/ML-1ML VIAL IV PRN (20:31)
[2020-12-23] MEDS: ATORVASTATIN 20 MG TAB PO SCH (22:18)
[2020-12-23] MEDS: TEMAZEPAM 15 MG CAP PO PRN (23:30)
[2020-12-24 05:00] VITALS: BP 123/65
[2020-12-24] MEDS: LORazepam 2MG/ML-1ML VIAL IV PRN ×2 (05:30→13:46)
[2020-12-24] MEDS: chlordiazePOXIDE HCL 5 MG CAP PO SCH ×3 (06:48→17:01)
[2020-12-24] MEDS: FUROSEMIDE 40 MG/4 ML VIAL IV SCH ×2 (06:48→17:01)
[2020-12-24] MEDS: LEVOTHYROXINE SODIUM 100 MCG TAB PO SCH (06:48)
[2020-12-24 08:38] VITALS: BP 116/66
[2020-12-24] MEDS: ASPirin 81 mg TAB PO SCH (09:17)
[2020-12-24] MEDS: THIAMINE 100mg/ml INJ (200mg/2ml VIAL) IV SCH (09:18)
[2020-12-24] MEDS: AMIODARONE HCL 200 MG TAB PO SCH (09:18)
[2020-12-24] MEDS: FAMOTIDINE 20 MG TAB PO SCH (09:18)
[2020-12-24] MEDS: SODIUM CHLOR 0.9% PF (SALINE LOCK) 10ML VIAL/SYR IV SCH (09:18)
[2020-12-24] MEDS: APIXABAN 5 MG TAB PO SCH (09:19)
[2020-12-24] MEDS: ENALAPRIL MALEATE 2.5 MG TAB PO SCH (09:19)
[2020-12-24] MEDS: POTASSIUM CHL 20 Meq TABLET PO SCH (09:19)
[2020-12-24] MEDS: DIGOXIN 0.25 MG TAB PO SCH (09:22)
[2020-12-24] MEDS: CARVEDILOL 3.125 MG TAB PO SCH (09:23)
[2020-12-24 09:24] VITALS: BP 116/66
[2020-12-24] MEDS: DOBUTamine 1000MCG/ML 250 ML IV SCH (10:45)
[2020-12-24 13:00] VITALS: BP 122/72
[2020-12-24 15:11] VITALS: BP 122/72
[2020-12-24 17:00] VITALS: BP 103/71
== END 2020-12-24 18:50 | disposition hospice, home (50) | DRG 190 ==
LOC: EDBD 02:20 → ER 02:23 → TELE 05:34 → TELE-CENTR 08:41 → ICU WEST 12-21 11:26 → TELE-EAST 12-22 14:45
PROVIDERS: ADMIT Nurse Practitioner; ATTEND Internal Medicine
PROC: 5A09457 Assistance with Respiratory Ventilation, 24-96 Consecutive Hours, Continuous Positive Airway Pressure (ICD-10-PCS; 2020-12-21)
PROC: 02HV33Z Insertion of Infusion Device into Superior Vena Cava, Percutaneous Approach (ICD-10-PCS; 2020-12-21)
PROC: 5A09357 Assistance with Respiratory Ventilation, Less than 24 Consecutive Hours, Continuous Positive Airway Pressure (ICD-10-PCS; principal; 2020-12-23)
DX: I21.4 Non-ST elevation (NSTEMI) myocardial infarction (principal); J96.20 Acute and chronic respiratory failure, unspecified whether with hypoxia or hypercapnia; I50.23 Acute on chronic systolic (congestive) heart failure; E44.0 Moderate protein-calorie malnutrition; D68.9 Coagulation defect, unspecified; E87.1 Hypo-osmolality and hyponatremia; I27.20 Pulmonary hypertension, unspecified; I42.0 Dilated cardiomyopathy; I48.91 Unspecified atrial fibrillation; I11.0 Hypertensive heart disease with heart failure; D72.829 Elevated white blood cell count, unspecified; F10.10 Alcohol abuse, uncomplicated; F41.9 Anxiety disorder, unspecified; I25.10 Atherosclerotic heart disease of native coronary artery without angina pectoris; F19.239 Other psychoactive substance dependence with withdrawal, unspecified; Z20.822 Contact with and (suspected) exposure to COVID-19; Z53.29 Procedure and treatment not carried out because of patient's decision for other reasons; E05.90 Thyrotoxicosis, unspecified without thyrotoxic crisis or storm; E03.9 Hypothyroidism, unspecified; E66.9 Obesity, unspecified; Z66 Do not resuscitate; E78.5 Hyperlipidemia, unspecified; F15.10 Other stimulant abuse, uncomplicated; J44.9 Chronic obstructive pulmonary disease, unspecified; Z91.19 Patient's noncompliance with other medical treatment and regimen; Z95.810 Presence of automatic (implantable) cardiac defibrillator; Z86.73 Personal history of transient ischemic attack (TIA), and cerebral infarction without residual deficits; Z68.35 Body mass index [BMI] 35.0-35.9, adult; Z88.0 Allergy status to penicillin
CPT/HCPCS: 36415; 36569; 36600; 71045; 80048; 80053; 80162; 82805; 82962; 83735; 83880; 84443; 84484; 85025; 85610; 85730; 87081; 87426; 93005; 94660; 96374; 99291; G0378; J0330; J2405